=== PATIENT | female | born 1930 | race African-American/Black ===

== ENCOUNTER 2016-12-23 14:59 | Inpatient (IN) | payer MEDICAID, MEDICARE ==
--- NOTE | 2016-12-23 19:27 | Cat Scan Report ---
FINAL REPORT EXAM: CT HEAD/BRAIN WO CON HISTORY: fall head injury TECHNIQUE: CT head without contrast PRIORS: None. FINDINGS: No acute intra-axial or extra-axial hemorrhage is identified. There is no evidence of midline shift or mass effect. There is generalized prominence of ventricles and sulci. Mejía-white matter differentiation is intact. No acute parenchymal abnormalities seen. There are patchy and confluent hypodensities within the supratentorial white matter. More focal hypodensity within the posterior parietal and right occipital lobe most consistent chronic infarct noted. Bony calvarium is grossly intact. Visualized portions of the mastoids and paranasal sinuses are unremarkable. 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 Moderate generalized atrophy No acute traumatic abnormality identified.
--- NOTE | 2016-12-23 19:30 | Cat Scan Report ---
FINAL REPORT EXAM: CT CERVICAL SPINE WO CON HISTORY: fall head injury TECHNIQUE: CT cervical spine with reconstructions PRIORS: None. FINDINGS: Vertebral bodies demonstrate normal height and alignment. There is multilevel degenerative disc space narrowing most prominent C4-C5-C5-C6 with small anterior and posterior osteophytes. Hypertrophic facet joint changes are noted at multiple levels throughout the cervical spine. The facet joints demonstrate normal alignment. The spinous processes are intact. Craniocervical junction is unremarkable. C1 and C2 are intact. IMPRESSION: Degenerative disc changes and facet joint arthropathy Otherwise no acute abnormality seen
[2016-12-23 19:53] LABS: Basophils % (Auto) 0.4 % (0.0-1.8); Eosinophils % (Auto) 0.7 % (0.0-4.3); Hematocrit 38.3 % (30.3-42.9); Hemoglobin 12.2 gm/dl (10.1-14.3); Mean Corpuscular HGB Conc 32 % (30-34); Mean Corpuscular Hemoglobin 26 pg (28-32); Mean Corpuscular Volume 82 fl (79-97); Platelet Count 261 K/mm3 (140-440); Red Blood Count 4.66 M/mm3 (3.65-5.03); Red Cell Distribution Width 15.3 % (13.2-15.2); White Blood Count 7.7 K/mm3 (4.5-11.0)
[2016-12-23 20:01] LABS: Albumin 3.9 g/dL (3.9-5); Albumin/Globulin Ratio 1.1 %; BUN/Creatinine Ratio 18.88; Bilirubin,Total 0.6 mg/dL (0.1-1.2); Calcium 9.1 mg/dL (8.4-10.2); Chloride 98.8 mmol/L (98-107); Potassium 3.8 mmol/L (3.6-5.0); Total Protein 7.4 g/dL (6.3-8.2)
--- NOTE | 2016-12-23 20:02 | Emergency Department Report ---
ED Fall HPI - General Chief Complaint: Fall Stated Complaint: FALL Time Seen by Provider: 12/23/16 18:03 Source: EMS Mode of arrival: Stretcher Limitations: Language Barrier - History of Present Illness Initial Comments: 86-year-old female with a past medical history previous CVA presents to the hospital with complaints of left hip pain and left head injury status post fall. Patient fell out of bed yesterday. Also patient is "acting different". Patient complains of pain to left hip. No reports of LOC. ED Review of Systems ROS: Stated complaint: FALL Other details as noted in HPI Comment: All other systems reviewed and negative (limited, left hip pain left head injury as per hpi) ED Past Medical Hx - Past Medical History Hx CVA: Yes - Surgical History Additional Surgical History: Unknown - Social History Smoking Status: Unknown if ever smoked Substance Use Type: Other ED Physical Exam - General Limitations: Language Barrier - Other Other exam information: General:patient is alert in no acute distress Head exam: Ecchymosis to the left scalp Eyes exam: Normal appearance ENT: Moist mucous membrane, normal oropharynx Neck exam: Normal inspection, full range of motion, no meningismus nontender Respiratory exam: Clear to auscultation bilateral, no wheezes, rales, crackles Cardiovascular: Normal rate and rhythm, normal heart sounds Abdomen: Soft, nondistended, and nontender, with normal bowel sounds, no rebound, or guarding Extremity: Patient able to bend left leg at the knee. I am able to passively move hip in all directions with minimal grimace or pain. Full range of motion of right hip Back: Normal Inspection, full range of motion, no tenderness Neurologic: Alert, cranial nerves intact, no motor or sensory deficit Psychiatric: normal affect, normal mood Skin: Warm, dry, intact ED Course Vital Signs 12/23/16 17:26 Temperature 98.3 F Pulse Rate 104 H Blood Pressure 154/82 O2 Sat by Pulse 97 Oximetry - Consultations Consultation #1: 12/23/16 20:40 denzel paged 12/23/16 20:[address] Isidro upon call back. Recommends NPO for possible surgery tomorrow ED Medical Decision Making - Lab Data Result diagrams: 12/23/16 19:20 12/23/16 19:20 Lab Results 12/23/16 12/23/16 12/23/16 Range/Units 19:20 19:20 19:20 WBC 7.7 (4.5-11.0) K/mm3 RBC 4.66 (3.65-5.03) M/mm3 Hgb 12.2 (10.1-14.3) gm/dl Hct 38.3 (30.3-42.9) % MCV 82 (79-97) fl MCH 26 L (28-32) pg MCHC 32 (30-34) % RDW 15.3 H (13.2-15.2) % Plt Count 261 (140-440) K/mm3 Lymph % (Auto) 25.6 (13.4-35.0) % [place] % (Auto) 8.8 H (0.0-7.3) % Eos % (Auto) 0.7 (0.0-4.3) % Baso % (Auto) 0.4 (0.0-1.8) % Lymph # 2.0 (1.2-5.4) K/mm3 [place] # 0.7 (0.0-0.8) K/mm3 Eos # 0.1 (0.0-0.4) K/mm3 Baso # 0.0 (0.0-0.1) K/mm3 Seg Neutrophils % 64.5 (40.0-70.0) % Seg Neutrophils # 5.0 (1.8-7.7) K/mm3 PT 13.1 (12.2-14.9) Sec. INR 1.00 (0.87-1.13) APTT 32.0 (24.2-36.6) Sec. Sodium 140 (137-145) mmol/L Potassium 3.8 (3.6-5.0) mmol/L Chloride 98.8 (98-107) mmol/L Carbon Dioxide 23 (22-30) mmol/L Anion Gap 22 mmol/L BUN 17 (7-17) mg/dL Creatinine 0.9 (0.7-1.2) mg/dL Estimated GFR 59 ml/min BUN/Creatinine Ratio 18.88 % Glucose 188 H (65-100) mg/dL Calcium 9.1 (8.4-10.2) mg/dL Total Bilirubin 0.6 (0.1-1.2) mg/dL AST 18 (5-40) units/L ALT 10 (7-56) units/L Alkaline Phosphatase 107 (35-129) units/L Ammonia (25-60) umol/L Total Creatine Kinase (30-135) units/L CK-MB (CK-2) (0.0-4.0) ng/mL CK-MB (CK-2) Rel Index (0-4) Troponin T (0.00-0.029) ng/mL Total Protein 7.4 (6.3-8.2) g/dL Albumin 3.9 (3.9-5) g/dL Albumin/Globulin Ratio 1.1 % TSH (0.270-4.200) mlU/mL Free T4 (0.76-1.46) ng/dL 12/23/16 12/23/16 12/23/16 Range/Units 19:20 19:20 19:20 WBC (4.5-11.0) K/mm3 RBC (3.65-5.03) M/mm3 Hgb (10.1-14.3) gm/dl Hct (30.3-42.9) % MCV (79-97) fl MCH (28-32) pg MCHC (30-34) % RDW (13.2-15.2) % Plt Count (140-440) K/mm3 Lymph % (Auto) (13.4-35.0) % [place] % (Auto) (0.0-7.3) % Eos % (Auto) (0.0-4.3) % Baso % (Auto) (0.0-1.8) % Lymph # (1.2-5.4) K/mm3 [place] # (0.0-0.8) K/mm3 Eos # (0.0-0.4) K/mm3 Baso # (0.0-0.1) K/mm3 Seg Neutrophils % (40.0-70.0) % Seg Neutrophils # (1.8-7.7) K/mm3 PT (12.2-14.9) Sec. INR (0.87-1.13) APTT (24.2-36.6) Sec. Sodium (137-145) mmol/L Potassium (3.6-5.0) mmol/L Chloride (98-107) mmol/L Carbon Dioxide (22-30) mmol/L Anion Gap mmol/L BUN (7-17) mg/dL Creatinine (0.7-1.2) mg/dL Estimated GFR ml/min BUN/Creatinine Ratio % Glucose (65-100) mg/dL Calcium (8.4-10.2) mg/dL Total Bilirubin (0.1-1.2) mg/dL AST (5-40) units/L ALT (7-56) units/L Alkaline Phosphatase (35-129) units/L Ammonia 32.0 (25-60) umol/L Total Creatine Kinase (30-135) units/L CK-MB (CK-2) (0.0-4.0) ng/mL CK-MB (CK-2) Rel Index (0-4) Troponin T < 0.010 (0.00-0.029) ng/mL Total Protein (6.3-8.2) g/dL Albumin (3.9-5) g/dL Albumin/Globulin Ratio % TSH 2.180 (0.270-4.200) mlU/mL Free T4 1.38 (0.76-1.46) ng/dL 12/23/ Range/Units 19:20 WBC (4.5-11.0) K/mm3 RBC (3.65-5.03) M/mm3 Hgb (10.1-14.3) gm/dl Hct (30.3-42.9) % MCV (79-97) fl MCH (28-32) pg MCHC (30-34) % RDW (13.2-15.2) % Plt Count (140-440) K/mm3 Lymph % (Auto) (13.4-35.0) % [place] % (Auto) (0.0-7.3) % Eos % (Auto) (0.0-4.3) % Baso % (Auto) (0.0-1.8) % Lymph # (1.2-5.4) K/mm3 [place] # (0.0-0.8) K/mm3 Eos # (0.0-0.4) K/mm3 Baso # (0.0-0.1) K/mm3 Seg Neutrophils % (40.0-70.0) % Seg Neutrophils # (1.8-7.7) K/mm3 PT (12.2-14.9) Sec. INR (0.87-1.13) APTT (24.2-36.6) Sec. Sodium (137-145) mmol/L Potassium (3.6-5.0) mmol/L Chloride (98-107) mmol/L Carbon Dioxide (22-30) mmol/L Anion Gap mmol/L BUN (7-17) mg/dL Creatinine (0.7-1.2) mg/dL Estimated GFR ml/min BUN/Creatinine Ratio % Glucose (65-100) mg/dL Calcium (8.4-10.2) mg/dL Total Bilirubin (0.1-1.2) mg/dL AST (5-40) units/L ALT (7-56) units/L Alkaline Phosphatase (35-129) units/L Ammonia (25-60) umol/L Total Creatine Kinase 98 (30-135) units/L CK-MB (CK-2) 1.8 (0.0-4.0) ng/mL CK-MB (CK-2) Rel Index 1.8 (0-4) Troponin T (0.00-0.029) ng/mL Total Protein (6.3-8.2) g/dL Albumin (3.9-5) g/dL Albumin/Globulin Ratio % TSH (0.270-4.200) mlU/mL Free T4 (0.76-1.46) ng/dL - EKG Data -: EKG Interpreted by Me (normal sinus rhythm rate 93. No ST elevation or T- wave inversions) - Radiology Data Radiology results: report reviewed, image reviewed interpreted by me: Chest x-ray: Chronic interstitial changes no acute findings Left hip x-ray: Femoral neck fracture. CT head: Chronic small vessel white matter ischemic changes and remote white posterior occipital infarct. Moderate generalized atrophy. CT cervical spine: Degenerative disc changes and facet joint arthropathy no acute abnormality - Medical Decision Making Patient has a left hip fracture. Orthopedic consultated. Patient does not have any other lab abnormality. Will be admitted to the hospital for further treatment. ua pending - Differential Diagnosis fall, fracture, contusion, intracranial hemorrhage, encephalopathy Critical Care Time: No Critical care attestation.: If time is entered above; I have spent that time in minutes in the direct care of this critically ill patient, excluding procedure time. ED Disposition Clinical Impression: Closed left hip fracture, Fall, Closed head injury Disposition: OP ADMITTED IP TO THIS HOSP Is pt being admited?: Yes Condition: Stable Time of Disposition: 20:38 (dr tan/hosp)
[2016-12-23 20:03] LABS: Creatine Kinase MB 1.8 ng/mL (0.0-4.0)
--- NOTE | 2016-12-23 20:11 | XRay Report ---
FINAL REPORT EXAM: XR HIP 2-3V LT HISTORY: fall, left hip pain TECHNIQUE: Left hip two views PRIORS: None. FINDINGS: There is acute left traumatic basicervical hip fracture with minimal displacement. The bony pelvis appears intact. Right hip is unremarkable. Pubic symphysis and SI joints are within normal limits. IMPRESSION: Acute left basicervical hip fracture
--- NOTE | 2016-12-23 20:41 | Admit Criteria Form ---
Admission Criteria Documentation: MUSCULOSKELETAL DISEASE GRG Clinical Indications for Admission to Inpatient Care (Place 'X' for any and all applicable criteria): Hospital admission is needed for appropriate care of the patient because of ANY ONE of the following: [X ]I. Fracture, dislocation, or other musculoskeletal injury requiring inpatient care(medical) as indicated by ANY ONE of the following(4)(5)(6)(7) [ ]a) Vertebral fracture requiring observation for instability or neurologic compromise (8) [ ]b) Compartment syndrome (proven or cannot be ruled out during observation level of care) (9) [ ]c) Limb-threatening injury [ ]d) Major injury requiring inpatient stabilization such as traction initiation or external fixation before internal fixation or closure of complex or open fracture [X ]e) Major injury requiring inpatient treatment after emergency or observation level care (as appropriate) [ ]f) Severe pain requiring acute inpatient management [ ]II. Newly diagnosed or suspected bone, joint, or orthopedic device infection (e.g., osteomyelitis, septic arthritis) needing ANY ONE of the following(1)(2)(3) [ ]a) IV antibiotics that cannot be initiated in other than inpatient setting (e.g., patient too unstable or home infusion not available) [ ]b) Device removal or replacement [ ]c) Bone or soft tissue debridement [ ]d) Joint drainage (drain placement or repetitive aspirations) [ ]III. Severe rheumatologic disease (e.g., systemic lupus erythematosus, rheumatoid arthritis) with complications or comorbidities (Also use Optimal Recovery Care Criteria or General Recovery Criteria as appropriate on the basis of predominant condition), including ANY ONE of the following(10 )(11)(12)(13) [ ]a) Severe infection (e.g., INFORMATION TECHNOLOGY ASSISTANT infection, sepsis) (14) [ ]b) Respiratory complications, including ANY ONE of the following: [ ]i) Pleural effusion with respiratory compromise [ ]ii) Pulmonary hypertension with congestive failure [ ]iii) Respiratory failure [ ]iv) Pulmonary hemorrhage (15) [ ]c) Hematologic disease, including ANY ONE of the following: [ ]i) Coagulopathy with bleeding [ ]ii) Thrombosis with hypercoagulable state [ ]iii) Thrombotic thrombocytopenic purpura [ ]d) Cerebritis with seizures, psychosis, or other severe abnormalities [ ]e) Vertebral destruction with monitoring needed for cervical myelopathy& possible respiratory compromise [ ]f) Exacerbation that requires inpatient treatment (e.g., intravenous immunosuppression) (16) [ ]g) Acute renal failure [ ]IV. Severe vasculitis with complications or comorbidities (Also use Optimal Recovery Care Criteria or General Recovery Criteria as appropriate on the basis of predominant condition), including ANY ONE of the following(11)(12)(17)(18)(19)(20) [ ]a) INFORMATION TECHNOLOGY ASSISTANT vasculitis with seizures, psychosis, or other severe abnormalities (22) [ ]b) Renal failure (16) [ ]c) Pulmonary hemorrhage (15) [ ]d) Cerebral infarction [ ]e) Gastrointestinal ischemia [ ]f) Gangrene or threatened amputation [ ]g) Exacerbation that requires inpatient treatment (e.g., intravenous immunosuppression) (19)(21) [ ]V. Severe myopathy as indicated by ANY ONE of the following (28)(29) [ ]a) New onset of airway compromise or inability to swallow [ ]b) Respiratory deterioration with observation needed for impending respiratory failure [ ]c) Exacerbation that requires inpatient treatment (e.g., intravenous immunosuppression) [ ]. Severe gout (crystal arthropathy) as indicated by ANY ONE of the following (23)(24) [ ]a) Severe pain requiring acute inpatient management [ ]b) Exacerbation that requires inpatient treatment (e.g., intravenous treatment) [ ]VII.Rhabdomyolysis and ANY ONE of the following (25)(26)(27) [ ]a) Acute renal failure [ ]b) Need for intravenous hydration after emergency or observation level care (as appropriate) [ ]c) Inability to maintain oral hydration [ ]d) Change in mental status [ ]e) Electrolyte abnormality that remains after emergency or observation level care (as appropriate) [ ]VIII Post amputation complication, as indicated by ANY ONE of the following [ ]a) Infection [ ]b) Dehiscence [ ]c) Myodesis failure [ ]IX. Severe pain requiring acute inpatient management as indicated by ALL of the following (30)(31)(32) [ ]a) Continuous or frequent (e.g., every 2 to 4 hrs) parenteral analgesics required [A] [ ]b) Rapid improvement expected from treatment or acute intervention ( e.g., surgery, anesthesia procedure[B] [ ]X. Musculoskeletal Disease and ALL of the following: [ ]a) Symptom or finding for which emergency and observation care have failed or are not considered appropriate (Use General Criteria: Observation Care as appropriate) [ ]b) Presence of ANY ONE of the following [ ]i) A General Admission Criteria [ ]ii) A Pediatric General Admission Criteria The original [facility] content created by [facility] has been revised. The portions of the content which have been revised are identified through the use of italic text or in bold, and [facility] has neither reviewed nor approved the modified material. All other unmodified content is copyright [facility]. Please see references footnoted in the original [facility] edition 2016 Admission Criteria Met: Yes
[2016-12-24] MEDS ORDERED: DILAUDID IV PRN (05:59)
[2016-12-24] MEDS ORDERED: ZOFRAN IV PRN (06:00)
[2016-12-24] MEDS ORDERED: ceFAZolin 2 GM in NACL 0.9% 100 ML IV ONE (07:20)
--- NOTE | 2016-12-24 07:23 | Consultation ---
History of Present Illness - HPI Consult date: 12/24/16 Consult reason: fracture (left hip) Medications and Allergies Allergies Allergy/AdvReac Type Severity Reaction Status Date / Time No Known Allergies Allergy Verified 12/24/16 06:01 Home Medications Medication Instructions Recorded Confirmed Last Taken Type Linagliptin [Tradjenta] 5 mg PO DAILY 12/24/16 12/24/16 Unknown History Mupirocin 0.5 gm TL 4XD 12/24/16 12/24/16 Unknown History Nifedipine ER 30 mg PO DAILY 12/24/16 12/24/16 Unknown History Potassium Chloride 20 meq PO DAILY 12/24/16 12/24/16 Unknown History Ranitidine HCl 150 mg PO BID 12/24/16 12/24/16 Unknown History Tramadol HCl 50 mg PO BID PRN 12/24/16 12/24/16 Unknown History Triamcinolone 0.5% 12/24/16 Unknown History Valsartan 80 mg PO DAILY 12/24/16 12/24/16 Unknown History glipiZIDE XL 5 mg PO DAILY 12/24/16 12/24/16 Unknown History predniSONE 5 mg PO QWEEK 12/24/16 12/24/16 Unknown History Active Meds: Active Medications Famotidine (Pepcid) 20 mg PO DAILY [facility] Hydromorphone HCl (Dilaudid) 0.5 mg IV Q3H PRN PRN Reason: Pain , Severe (7-10) Cefazolin Sodium 2 gm/ Sodium (Chloride) 100 mls @ 200 mls/hr IV ONCE ONE Stop: 12/24/16 07:49 Insulin Aspart (Novolog) 0 units SUB-Q Q6HR SEBASTIAN PRN Reason: Protocol Nifedipine (Procardia Xl) 30 mg PO QDAY [facility] Ondansetron HCl (Zofran) 4 mg IV Q3H PRN PRN Reason: Nausea And Vomiting Potassium Chloride (K-Dur) 20 meq PO QDAY [facility] Valsartan (Diovan) 80 mg PO DAILY [facility] Assessment and Plan alert orintated elderly female in mod pain fell at home, admited by ER Chest clear, soft abdomen neuro intact Rxd Fx base of femoral neck Osteoporosis Plan ORIF hip consent obtained from .
--- NOTE | 2016-12-24 08:17 | XRay Report ---
AP chest x-ray. Findings: The heart and lungs reveal no acute or significant abnormalities.
[2016-12-24] MEDS ORDERED: NON-FORMULARY (Ranitidine Hcl 150 MG) PO SCH (10:00)
[2016-12-24] MEDS ORDERED: POTASSIUM CHLORIDE 20 MEQ PO SCH (10:00)
[2016-12-24] MEDS ORDERED: VALSARTAN 80 MG PO SCH (10:00)
[2016-12-24] MEDS ORDERED: NIFEDIPINE 30 MG PO SCH (10:00)
--- NOTE | 2016-12-24 11:02 | Progress Note ---
Assessment and Plan Assessment and plan: 1. Hip fracture. Orthopedics to perform surgery 2. History CVA. Continue supportive care. 3. s/p fall. No LOC. PT/OT postoperatively. History Interval history: No new issues overnight. Hospitalist Physical - Constitutional Vitals: Temp Pulse Resp BP Pulse Ox 97.3 F L 106 H 20 146/90 96 12/24/16 07:00 12/24/16 07:00 12/24/16 07:00 12/24/16 07:00 12/24/16 07:00 General appearance: Present: no acute distress, well-nourished - EENT Eyes: Present: PERRL, EOM intact ENT: hearing intact, clear oral mucosa, dentition normal - Neck Neck: Present: supple, normal ROM - Respiratory Respiratory effort: normal Respiratory: bilateral: CTA - Cardiovascular Rhythm: regular Heart Sounds: Present: S1 & S2. Absent: gallop, rub - Extremities Extremities: no ischemia, No edema, Full ROM - Abdominal General gastrointestinal: soft, non-tender, non-distended, normal bowel sounds - Integumentary Integumentary: Present: clear, warm, dry - Neurologic Neurologic: CNII-XII intact, moves all extremities Results - Labs CBC & Chem 7: 12/23/16 19:20 12/23/16 19:20 Labs: Laboratory Last Values WBC 7.7 K/mm3 (4.5-11.0) 12/23/16 19:20 RBC 4.66 M/mm3 (3.65-5.03) 12/23/16 19:20 Hgb 12.2 gm/dl (10.1-14.3) 12/23/16 19:20 Hct 38.3 % (30.3-42.9) 12/23/16 19:20 MCV 82 fl (79-97) 12/23/16 19:20 MCH 26 pg (28-32) L 12/23/16 19:20 MCHC 32 % (30-34) 12/23/16 19:20 RDW 15.3 % (13.2-15.2) H 12/23/16 19:20 Plt Count 261 K/mm3 (140-440) 12/23/16 19:20 Lymph % (Auto) 25.6 % (13.4-35.0) 12/23/16 19:20 [place] % (Auto) 8.8 % (0.0-7.3) H 12/23/16 19:20 Eos % (Auto) 0.7 % (0.0-4.3) 12/23/16 19:20 Baso % (Auto) 0.4 % (0.0-1.8) 12/23/16 19:20 Lymph # 2.0 K/mm3 (1.2-5.4) 12/23/16 19:20 [place] # 0.7 K/mm3 (0.0-0.8) 12/23/16 19:20 Eos # 0.1 K/mm3 (0.0-0.4) 12/23/16 19:20 Baso # 0.0 K/mm3 (0.0-0.1) 12/23/16 19:20 Seg Neutrophils % 64.5 % (40.0-70.0) 12/23/16 19:20 Seg Neutrophils # 5.0 K/mm3 (1.8-7.7) 12/23/16 19:20 PT 13.1 Sec. (12.2-14.9) 12/23/16 19:20 INR 1.00 (0.87-1.13) 12/23/16 19:20 APTT 32.0 Sec. (24.2-36.6) 12/23/16 19:20 Sodium 140 mmol/L (137-145) 12/23/16 19:20 Potassium 3.8 mmol/L (3.6-5.0) 12/23/16 19:20 Chloride 98.8 mmol/L (98-107) 12/23/16 19:20 Carbon Dioxide 23 mmol/L (22-30) 12/23/16 19:20 Anion Gap 22 mmol/L 12/23/16 19:20 BUN 17 mg/dL (7-17) 12/23/16 19:20 Creatinine 0.9 mg/dL (0.7-1.2) 12/23/16 19:20 Estimated GFR 59 ml/min 12/23/16 19:20 BUN/Creatinine Ratio 18.88 % 12/23/16 19:20 Glucose 188 mg/dL (65-100) H 12/23/16 19:20 Calcium 9.1 mg/dL (8.4-10.2) 12/23/16 19:20 Total Bilirubin 0.6 mg/dL (0.1-1.2) 12/23/16 19:20 AST 18 units/L (5-40) 12/23/16 19:20 ALT 10 units/L (7-56) 12/23/16 19:20 Alkaline Phosphatase 107 units/L (35-129) 12/23/16 19: Ammonia 32.0 umol/L (25-60) 12/23/16 19:20 Total Creatine Kinase 98 units/L (30-135) 12/23/16 19:20 CK-MB (CK-2) 1.8 ng/mL (0.0-4.0) 12/23/16 19:20 CK-MB (CK-2) Rel Index 1.8 (0-4) 12/23/16 19:20 Troponin T < 0.010 ng/mL (0.00-0.029) 12/23/16 19:20 Total Protein 7.4 g/dL (6.3-8.2) 12/23/16 19:20 Albumin 3.9 g/dL (3.9-5) 12/23/16 19:20 Albumin/Globulin Ratio 1.1 % 12/23/16 19:20 TSH 2.180 mlU/mL (0.270-4.200) 12/23/16 19:20 Free T4 1.38 ng/dL (0.76-1.46) 12/23/16 19:20
[2016-12-24] MEDS ORDERED: NACL 0.9% 1000 ML 1,000 ML ONE (11:34)
--- NOTE | 2016-12-24 11:53 | Anesthesia Consultation ---
Anesthesia Consult and Med Hx Date of service: 12/24/16 (Scheduled for left hip surgery with Dr. Garcia) - Airway Anesthetic Teeth Evaluation: Edentulous ROM Head & Neck: Adequate Mental/Hyoid Distance: Adequate Mallampati Class: Class III (Difficult to assess) Intubation Access Assessment: Possibly Difficult - Pulmonary Exam CTA: Yes - Cardiac Exam Cardiac Exam: RRR - Pre-Operative Health Status ASA Pre-Surgery Classification: ASA3 Proposed Anesthetic Plan: General - Pre-Anesthesia Comment Pre-Anesthesia Comments: PT does not speak Spanish- daughter present to translate. Past surgical hx of tubal ligation and hand fx- no previous anesthesia complications. NPO since midnight. - Pulmonary Hx Smoking: No Hx Asthma: No - Cardiovascular System Hx Hypertension: Yes (Pt denies chest pain) Hx Coronary Artery Disease: No Hx Heart Attack/AMI: No - Central Nervous System Hx Seizures: No CVA: Yes (Left sided residual paralysis) Hx Psychiatric Problems: Yes (Dementia) - Gastrointestinal Hx Gastroesophageal Reflux Disease: No - Endocrine Hx Renal Disease: No Hx Non-Insulin Dependent Diabetes: Yes (Accucheck 230- Pt given 5 units IV regular insulin) Hx Thyroid Disease: No - Hematic Hx Anemia: No (H/H ) - Other Systems Hx Cancer: No Hx Obesity: No
[2016-12-24] MEDS ORDERED: PEPCID IV NR (12:00)
[2016-12-24] MEDS ORDERED: SUBLIMAZE ONE (12:16)
[2016-12-24] MEDS ORDERED: DIPRIVAN 10 MG/ML IV ONE (12:16)
[2016-12-24] MEDS ORDERED: XYLOCAINE MPF 2% ONE ×2 (12:19→13:38)
--- NOTE | 2016-12-24 12:34 | Anesthesia Day of Surgery ---
Anesthesia Day of Surgery - Day of Surgery Patient Examined: Yes Patient H&P Reviewed: Yes Patient is NPO: Yes
[2016-12-24] MEDS ORDERED: DULCOLAX PR PRN (12:58)
[2016-12-24] MEDS ORDERED: TYLENOL PO PRN (12:58)
[2016-12-24] MEDS ORDERED: PHENERGAN PR PRN (12:58)
[2016-12-24] MEDS ORDERED: MILK OF MAGNESIA PO PRN (12:58)
[2016-12-24] MEDS ORDERED: SODIUM CHLORIDE FLUSH SYRINGE 10 ML IV PRN (12:58)
--- NOTE | 2016-12-24 12:58 | Procedure Note ---
Date of procedure: 12/24/16 Pre-op diagnosis: frcture left hip; femoral neck Post-op diagnosis: same Procedure: Bipolar cemented arthroplasty left hip Anesthesia: GETA Surgeon: SHIMA OWENS [employer] Mechanic: JANELL LOZANO Estimated blood loss: minimal Pathology: list (femoral head) Specimen disposition: discarded Condition: stable Disposition: floor
[2016-12-24] MEDS ORDERED: ANCEF/STERILE WATER 2 GM/20 ML 2 GM/20 ML SYRINGE IV SCH (13:00)
[2016-12-24] MEDS ORDERED: ZOFRAN ONE (13:14)
[2016-12-24] MEDS ORDERED: NEOSPORIN GU IR ONE (13:26)
[2016-12-24] MEDS ORDERED: NACL 0.9% IR ONE (13:27)
[2016-12-24] MEDS ORDERED: TRANEXAMIC ACID IV ONE (13:27)
[2016-12-24] MEDS ORDERED: BREVIBLOC IV ONE (13:29)
[2016-12-24] MEDS ORDERED: NACL P/F VIAL (10 ML) INFILTRATI ONE (13:29)
[2016-12-24] MEDS ORDERED: ROBINUL ONE (13:29)
[2016-12-24] MEDS ORDERED: NEO SYNEPHRINE/NS Syringe(OR USE) IV ONE (13:38)
[2016-12-24] MEDS: DILAUDID IV PRN ×4 (14:35→15:03)
--- NOTE | 2016-12-24 16:52 | Event Note ---
Date: 12/23/16 See H/p in reports L Hip trochanteric fx HTN T2DM
--- NOTE | 2016-12-24 19:13 | History and Physical Report ---
CHIEF COMPLAINT: Left hip pain and headaches after a fall. HISTORY OF PRESENT ILLNESS: An 86-year-old with history of hypertension and diabetes and cerebrovascular accident, had a fall today, tripped and fell down. Since then fell out of bed. The patient has pain of 10/10 and unable to move her left hip. No loss of consciousness. Pain is sharp and intermittent. More on any movement in the hip joint. No fever, no chills. Slightly altered sensorium. PAST MEDICAL HISTORY: Hypertension, diabetes, cerebrovascular accident. PAST SURGICAL HISTORY: None. SOCIAL HISTORY: Does not smoke. No alcohol, no recreational drugs. Lives with her family. FAMILY HISTORY: No hypertension, no diabetes. CURRENT MEDICATIONS: The patient on, 1. Prednisone 5 mg q. weekly, reason unknown. 2. Glipizide 5 mg p.o. daily. 3. Tradjenta 5 mg p.o. daily. 4. Mupirocin 0.5 mg 4 times a day. 5. Tramadol 250 mg twice a day. 6. Triamcinolone cream 0.5% twice a day to affected areas of skin rash. 7. Nifedipine 30 mg p.o. daily. 8. Potassium 20 mEq p.o. daily. 9. Ranitidine 150 mg p.o. b.i.d. 10. Valsartan 80 mg p.o. daily. REVIEW OF SYSTEMS: CONSTITUTIONAL: No weight loss, no weight gain. Slightly altered sensorium. HEENT: No sore throat. No postnasal drip. CARDIOVASCULAR: No chest pain, no palpitations. RESPIRATORY SYSTEM: No shortness of breath. No cough. GASTROINTESTINAL: No nausea, no vomiting, no diarrhea. GENITOURINARY: No dysuria, no flank pain. MUSCULOSKELETAL: No joint pains. Has severe left hip pain. Pain is about 10 on a scale of 1 to 10. LYMPHATIC AND HEMATOLOGIC SYSTEMS: No bruising, no lymphedema. CENTRAL NERVOUS SYSTEM: Slightly altered sensorium, but otherwise alert and oriented. SKIN: No rashes. A 14-point review of systems done essentially negative other than the left hip pain and slightly altered sensorium, negative. PHYSICAL EXAMINATION: GENERAL: Elderly female lying in bed, slight distress because of the left hip pain. VITAL SIGNS: Blood pressure is 138/74, temperature is 97, pulse is 102, respiratory rate is 12. HEENT: Unremarkable. Pupils equal and reactive. NECK: Supple, no lymphadenopathy, no thyromegaly. LUNGS: Clear to auscultation and percussion. Good air entry. CARDIOVASCULAR: S1, S2 heard. No gallop, no murmur, no rub. Apical impulse in left fifth intercostal space and midclavicular line. ABDOMEN: Soft and benign. No hepatosplenomegaly. No guarding, no rigidity. Hernial orifices are normal. EXTREMITIES: Good pedal pulses. No pedal edema. CENTRAL NERVOUS SYSTEM: Alert and oriented x 4. Nonfocal exam. EXTREMITIES: Decreased range of motion of the left hip. Slightly abducted and external rotation present. SKIN: Normal. LABORATORY DATA: White count is 7700, H and H is 12.2 and 38.3, platelet count is 261,000. Protime is 13.1, INR is 1.0. Glucose is 231. Sodium is 140, potassium is 3.8, BUN and creatinine is 17 and 0.9. CK-MB is 1.8. LFTs are normal. Chest x-ray is normal. Hip x-ray shows left basicervical hip fracture. Minimal displacement. Pubic symphysis and SI joints are within normal limits. Head CT and spinal CT were normal. ASSESSMENT AND PLAN: 1. Left hip fracture basicervical. The patient for open reduction internal fixation in the morning. Dr. Garcia consulted. Pain management in the meantime. Dilaudid 0.5 to 1 mg q.3 and Zofran 4 mg q.3 p.r.n. 2. Type 2 diabetes mellitus. The patient's glipizide is kept on hold. Insulin coverage for the time being till the surgery is over and the patient starts eating. 3. Hypertension. Continue valsartan and nifedipine. Valsartan 80 mg daily and nifedipine 30 mg daily. 4. Gastroesophageal reflux disease. Continue ranitidine 150 twice a day. 5. Dermatitis. Continue steroid creams on p.r.n. basis. 6. DVT prophylaxis, SCDs for now and Lovenox after the surgery. JOB# [id number] VSM/NTS
[2016-12-24] MEDS: NOVOLOG SUB-Q SCH ×3 (19:56→23:22)
[2016-12-24] MEDS: ANCEF/NS 1 GM/50 ML 1 GM/50 ML BAG IV SCH (21:26)
[2016-12-24] MEDS: ASPIRIN PO SCH (21:26)
[2016-12-24] MEDS: MORPHINE IV PRN (21:27)
--- NOTE | 2016-12-25 00:40 | Consultation ---
REASON FOR CONSULTATION: Fracture of the left hip. BRIEF HISTORY: The patient is an 86-year-old female who was admitted to the hospital to the Emergency Clinic after sustaining the above-mentioned injury that occurred with the patient slipped and fell at home. The patient was admitted secondary to the fracture type. The patient was seen today at bedside. PHYSICAL EXAMINATION: GENERAL: Today demonstrates an alert and oriented female who is in no acute distress. HEAD: The examination demonstrates the patient to be normocephalic. EYES, EARS, NOSE, AND THROAT: Clear. CHEST: Clear. ABDOMEN: soft with no masses. NEUROLOGICAL: Intact. The patient has severe discomfort and pain of the left lower extremity. The leg is in slight external rotation without any shortening The pulses are good. Neurological exam is normal. DIAGNOSTIC STUDIES: X-rays of the patient demonstrates a fracture on the bases of the femoral neck on the left hip with severe osteoporosis. DIAGNOSES: Fracture of the left hip femoral neck, severe osteoporosis. RECOMMENDATIONS: Today discussion with the patient and her was carried out. Consent was obtained. The plan is to carry out bipolar arthroplasty of the hip joint. This will be carried out with cement. JOB# [id number] SERAFIN/GUERLINE ALICEA
[2016-12-25] MEDS: ANCEF/NS 1 GM/50 ML 1 GM/50 ML BAG IV SCH (04:17)
[2016-12-25] MEDS: OxyCONTIN PO SCH ×3 (06:38→23:25)
[2016-12-25] MEDS: NOVOLOG SUB-Q SCH ×3 (06:43→17:44)
--- NOTE | 2016-12-25 08:19 | Query- Nutrition ---
Marry Brady Date:_12/25/2016 Pet Care Attendant/CDS:__Maxim Navarrete Phone#: Exercise your independent professional judgment when responding to query. Questions asked do not imply a particular answer is desired or expected. We greatly appreciate your clarification on this issue. Clinical Documentation States: The patient is a 79-shppo-lsi Female who was admitted due to Femur Fracture. Weight 38.9 kg BMI 16.7 kg/m2 Please select the most appropriate option 3 [] Mild Malnutrition [x] Mild - Moderate Malnutrition [] Moderate - Severe Malnutrition [] Severe Malnutrition Serum Albumin 2.8 to 3.4 g/dl or Pre-albumin 5 to 17 mg/dl1,2 Inadequate nutritional intake1,2,3,4 NPO > 5 days Weight loss: 5% in 1 month or 7.5% in 3 months or 10% in 6 months1, 3,4 BMI 16 to 18.4 or Weight <90% of ideal body weight1,2,3,4 Serum Albumin < 2.8 g/ dl1,2 Lymphocytes < 1500/ L2 Inadequate nutritional intake3, high stress e.g. major trauma, sepsis,pancreatitis, clinton etc. Decubitus ulcers1,2, , skin breakdown2, easy hair pluckability2 Weight <80% standard for height2 Triceps skin fold <3 mm2 Mid-arm muscle circumference <15 cm2 Creatinine-height index <60% standard2 [ ] Cachexia [ ] Emaciated w/Malnutrition [ ] Other: [ ] Unable to determine [ ] Comment/Explanation: Present on Admission: [ x] Yes (Y) [ ] Clinically undeterminable (W) [ ] No (N) Please also document response in your Progress Notes and/or Discharge Summary and indicate if the condition was present on admission. MTDD
[2016-12-25] MEDS: ASPIRIN PO SCH ×2 (09:55→23:24)
[2016-12-25] MEDS: PROCARDIA XL PO SCH (09:56)
[2016-12-25] MEDS: K-DUR PO SCH (09:56)
[2016-12-25] MEDS: DIOVAN PO SCH (09:57)
--- NOTE | 2016-12-25 10:21 | Post Anesthesia Evaluation ---
- Post Anesthesia Evaluation Patient Participated: Yes Airway Patent: Yes Stable Respiratory Function: Yes Nausea/Vomiting: No Temp > 96.8F: Yes Pain Manageable: Yes Adequeate Hydration: Yes Anesthesia Complications: No Block Receding Appropriately: Not Applicable Patient on Ventilator: No
--- NOTE | 2016-12-25 13:41 | Progress Note ---
Assessment and Plan Assessment and plan: 1. Hip fracture. Orthopedics to perform surgery 2. History CVA. Continue supportive care. 3. s/p fall. No LOC. PT/OT postoperatively. 4. Disposition. Patient will need likely acute rehabilitation placement. History Interval history: No new issues overnight. Hospitalist Physical - Constitutional Vitals: Temp Pulse Resp BP Pulse Ox 100.4 F H 92 H 18 146/81 96 12/25/16 08:00 12/25/16 09:57 12/25/16 08:00 12/25/16 09:57 12/25/16 08:00 General appearance: Present: no acute distress, well-nourished - EENT Eyes: Present: PERRL, EOM intact ENT: hearing intact, clear oral mucosa, dentition normal - Neck Neck: Present: supple, normal ROM - Respiratory Respiratory effort: normal Respiratory: bilateral: CTA - Cardiovascular Rhythm: regular Heart Sounds: Present: S1 & S2. Absent: gallop, rub - Extremities Extremities: no ischemia, No edema, Full ROM - Abdominal General gastrointestinal: soft, non-tender, non-distended, normal bowel sounds - Integumentary Integumentary: Present: clear, warm, dry - Neurologic Neurologic: CNII-XII intact, moves all extremities Results - Labs CBC & Chem 7: 12/23/16 19:20 12/23/16 19:20 Labs: Laboratory Last Values WBC 7.7 K/mm3 (4.5-11.0) 12/23/16 19:20 RBC 4.66 M/mm3 (3.65-5.03) 12/23/16 19:20 Hgb 12.2 gm/dl (10.1-14.3) 12/23/16 19:20 Hct 38.3 % (30.3-42.9) 12/23/16 19:20 MCV 82 fl (79-97) 12/23/16 19:20 MCH 26 pg (28-32) L 12/23/16 19:20 MCHC 32 % (30-34) 12/23/16 19:20 RDW 15.3 % (13.2-15.2) H 12/23/16 19:20 Plt Count 261 K/mm3 (140-440) 12/23/16 19:20 Lymph % (Auto) 25.6 % (13.4-35.0) 12/23/16 19:20 [place] % (Auto) 8.8 % (0.0-7.3) H 12/23/16 19:20 Eos % (Auto) 0.7 % (0.0-4.3) 12/23/16 19:20 Baso % (Auto) 0.4 % (0.0-1.8) 12/23/16 19:20 Lymph # 2.0 K/mm3 (1.2-5.4) 12/23/16 19:20 [place] # 0.7 K/mm3 (0.0-0.8) 12/23/16 19:20 Eos # 0.1 K/mm3 (0.0-0.4) 12/23/16 19:20 Baso # 0.0 K/mm3 (0.0-0.1) 12/23/16 19:20 Seg Neutrophils % 64.5 % (40.0-70.0) 12/23/16 19:20 Seg Neutrophils # 5.0 K/mm3 (1.8-7.7) 12/23/16 19:20 PT 13.1 Sec. (12.2-14.9) 12/23/16 19:20 INR 1.00 (0.87-1.13) 12/23/16 19:20 APTT 32.0 Sec. (24.2-36.6) 12/23/16 19:20 Sodium 140 mmol/L (137-145) 12/23/16 19:20 Potassium 3.8 mmol/L (3.6-5.0) 12/23/16 19:20 Chloride 98.8 mmol/L (98-107) 12/23/16 19:20 Carbon Dioxide 23 mmol/L (22-30) 12/23/16 19:20 Anion Gap 22 mmol/L 12/23/16 19:20 BUN 17 mg/dL (7-17) 12/23/16 19:20 Creatinine 0.9 mg/dL (0.7-1.2) 12/23/16 19:20 Estimated GFR 59 ml/min 12/23/16 19:20 BUN/Creatinine Ratio 18.88 % 12/23/16 19:20 Glucose 188 mg/dL (65-100) H 12/23/16 19:20 POC Glucose 231 (70-105) H 12/25/16 11:38 Calcium 9.1 mg/dL (8.4-10.2) 12/23/16 19:20 Total Bilirubin 0.6 mg/dL (0.1-1.2) 12/23/16 19:20 AST 18 units/L (5-40) 12/23/16 19:20 ALT 10 units/L (7-56) 12/23/16 19:20 Alkaline Phosphatase 107 units/L (35-129) 12/23/16 19:20 Ammonia 32.0 umol/L (25-60) 12/23/16 19:20 Total Creatine Kinase 98 units/L (30-135) 12/23/16 19:20 CK-MB (CK-2) 1.8 ng/mL (0.0-4.0) 12/23/16 19:20 CK-MB (CK-2) Rel Index 1.8 (0-4) 12/23/16 19:20 Troponin T < 0.010 ng/mL (0.00-0.029) 12/23/16 19:20 Total Protein 7.4 g/dL (6.3-8.2) 12/23/16 19:20 Albumin 3.9 g/dL (3.9-5) 12/23/16 19:20 Albumin/Globulin Ratio 1.1 % 12/23/16 19:20 TSH 2.180 mlU/mL (0.270-4.200) 12/23/16 19:20 Free T4 1.38 ng/dL (0.76-1.46) 12/23/16 19:20
[2016-12-25 13:58] LABS: Hematocrit 35.7 % (30.3-42.9); Hemoglobin 11.1 gm/dl (10.1-14.3)
--- NOTE | 2016-12-25 15:14 | Progress Note ---
Assessment and Plan - Patient Problems (1) Closed left hip fracture Current Visit: Yes Status: Acute Qualifiers: Encounter type: subsequent encounter Fracture healing: F Plan to address problem: Continue with pain management, rehabilitation program, partial weightbearing and DVT prophylaxis, mechanical. Patient may be discharged to [facility]/SNF when medically cleared, followup in the office in 2 weeks upon discharge. Subjective Date of service: 12/25/16 Principal diagnosis: Fx hip/ s/p Bipolar nelda arthroplasty Interval history: Complaints of pain, no acute changes. Out of bed with rehabilitation. Objective Vital signs: Vital Signs - 12hr 12/25/16 12/25/16 12/25/16 08:00 09:57 10:00 Temperature 100.4 F H Pulse Rate 92 H Pulse Rate [ 92 H 92 H Right Brachial] Respiratory 18 Rate Blood Pressure 146/81 Blood Pressure 146/81 [Right Arm] O2 Sat by Pulse 96 96 Oximetry - Labs CBC & BMP: 12/25/16 13:29 12/23/16 19:20 Labs: Abnormal lab results 12/24/16 12/24/16 12/25/16 Range/Units 15:58 22:09 05:57 POC Glucose 169 H 317 H 176 H (70-105) 12/25/16 Range/Units 11:38 POC Glucose 231 H (70-105)
[2016-12-25] MEDS: D5/0.45NS 1,000 ML IV SCH (19:03)
[2016-12-25] MEDS: PEPCID PO SCH (19:28)
[2016-12-26] MEDS: NOVOLOG SUB-Q SCH ×5 (01:02→17:45)
--- NOTE | 2016-12-26 07:52 | Progress Note ---
Assessment and Plan alert orientated elderly female in mod pain Chest clear, soft abdomen neuro intact wound ok May be DC to rehab as per medicine Subjective Date of service: 12/26/16 Principal diagnosis: Fx hip/ s/p Bipolar nelda arthroplasty Objective Vital signs: Vital Signs - 12hr 12/25/16 12/26/16 23:00 04:10 Temperature 99.0 F 98.6 F Pulse Rate [ 120 H Left Radial] Pulse Rate [ 113 H Right Brachial] Respiratory 18 18 Rate Blood Pressure 131/69 114/67 [Right Arm] O2 Sat by Pulse 94 96 Oximetry - Labs CBC & BMP: 12/26/16 08:18 12/26/16 08:18 Labs: Abnormal lab results 12/25/16 12/25/16 12/25/16 Range/Units 11:38 17:12 23:45 POC Glucose 231 H 372 H 317 H (70-105) 12/26/16 Range/Units 06:03 POC Glucose 258 H (70-105)
[2016-12-26 08:38] LABS: Basophils % (Auto) 0.1 % (0.0-1.8); Hematocrit 32.8 % (30.3-42.9); Hemoglobin 10.5 gm/dl (10.1-14.3); Mean Corpuscular HGB Conc 32 % (30-34); Mean Corpuscular Hemoglobin 27 pg (28-32); Mean Corpuscular Volume 83 fl (79-97); Platelet Count 199 K/mm3 (140-440); Red Blood Count 3.95 M/mm3 (3.65-5.03); Red Cell Distribution Width 15.1 % (13.2-15.2); White Blood Count 10.5 K/mm3 (4.5-11.0)
[2016-12-26] MEDS: D5/0.45NS 1,000 ML IV SCH (08:48)
[2016-12-26 08:53] LABS: BUN/Creatinine Ratio 12.72; Calcium 8.6 mg/dL (8.4-10.2); Chloride 99.8 mmol/L (98-107); Potassium 3.7 mmol/L (3.6-5.0)
[2016-12-26] MEDS: DIOVAN PO SCH (09:30)
[2016-12-26] MEDS: ASPIRIN PO SCH ×2 (09:30→22:15)
[2016-12-26] MEDS: PEPCID PO SCH ×2 (09:30→17:45)
[2016-12-26] MEDS: PROCARDIA XL PO SCH ×2 (09:30→17:45)
[2016-12-26] MEDS: OxyCONTIN PO SCH (09:30)
[2016-12-26] MEDS: K-DUR PO SCH ×2 (09:30→17:44)
[2016-12-26] MEDS ORDERED: OxyCONTIN PO SCH (09:49)
[2016-12-26] MEDS ORDERED: DILAUDID IV PRN (12:00)
--- NOTE | 2016-12-26 14:39 | Consultation ---
History of Present Illness - Reason for Consult Consult date: 12/26/16 Evaluate for Acute IRU - History of Present Illness 86 y.o. female who presented after fall x2 at home and complaint of left hip pain; found to have an acute left hip fracture. Pt is now POD #2, left hip hemiarhtroplasty. On today, pt is very lethargic; likely secondary to pain medications. Consult requested for post-acute placement recommendations. History is per chart review due to lethargy and language barrier of in room. Past History Past Medical History: diabetes, hypertension, stroke Past Surgical History: total hip replacement Social history: , lives with family. denies: smoking, alcohol abuse Family history: no significant family history Medications and Allergies Allergies Allergy/AdvReac Type Severity Reaction Status Date / Time No Known Allergies Allergy Verified 12/24/16 06:01 Home Medications Medication Instructions Recorded Confirmed Last Taken Type Linagliptin [Tradjenta] 5 mg PO DAILY 12/24/16 12/24/16 Unknown History Mupirocin 0.5 gm TL 4XD 12/24/16 12/24/16 Unknown History Nifedipine ER 30 mg PO DAILY 12/24/16 12/24/16 Unknown History Potassium Chloride 20 meq PO DAILY 12/24/16 12/24/16 Unknown History Ranitidine HCl 150 mg PO BID 12/24/16 12/24/16 Unknown History Tramadol HCl 50 mg PO BID PRN 12/24/16 12/24/16 Unknown History Triamcinolone 0.5% 12/24/16 Unknown History Valsartan 80 mg PO DAILY 12/24/16 12/24/16 Unknown History glipiZIDE XL 5 mg PO DAILY 12/24/16 12/24/16 Unknown History predniSONE 5 mg PO QWEEK 12/24/16 12/24/16 Unknown History Active Meds: Active Medications Acetaminophen (Tylenol) 650 mg PO Q4H PRN PRN Reason: Pain MILD(1-3)/Fever >100.5/MORRISON Aspirin (Aspirin) 325 mg PO BID [facility] Last Admin: 12/25/16 23:24 Dose: 325 mg Bisacodyl (Dulcolax) 10 mg DC QDAY PRN PRN Reason: Constip unreliev by MOM/or NPO Famotidine (Pepcid) 20 mg PO DAILY [facility] Last Admin: 12/25/16 19:28 Dose: 20 mg Glipizide (Glucotrol Xl) 5 mg PO 0800 [facility] Hydromorphone HCl (Dilaudid) 0.5 mg IV Q4H PRN PRN Reason: Pain , Severe (7-10) Dextrose/Sodium Chloride (D5/0.45ns) 1,000 mls @ 75 mls/hr IV DIRECT [facility] Last Admin: 12/26/16 08:48 Dose: 75 mls/hr Insulin Aspart (Novolog) 0 units SUB-Q Q6HR [facility] PRN Reason: Protocol Last Admin: 12/26/16 06:15 Dose: 4 units Linagliptin (Tradjenta) 5 mg PO QDDIAB [facility] Magnesium Hydroxide (Milk Of Magnesia) 30 ml PO Q4H PRN PRN Reason: Constipation Morphine Sulfate (Morphine) 2 mg IV Q4H PRN PRN Reason: Pain, Moderate (4-6) Last Admin: 12/24/16 21:27 Dose: 2 mg Nifedipine (Procardia Xl) 30 mg PO QDAY [facility] Last Admin: 12/25/16 09:56 Dose: 30 mg Ondansetron HCl (Zofran) 4 mg IV Q3H PRN PRN Reason: Nausea And Vomiting Oxycodone/Acetaminophen (Percocet 5/325) 1 tab PO Q6H PRN PRN Reason: Pain, Moderate (4-6) Potassium Chloride (K-Dur) 20 meq PO QDAY [facility] Last Admin: 12/25/16 09:56 Dose: 20 meq Promethazine HCl (Phenergan) 25 mg DC Q6H PRN PRN Reason: Nausea And Vomiting Sodium Chloride (Sodium Chloride Flush Syringe 10 Ml) 10 ml IV PRN PRN PRN Reason: LINE FLUSH Valsartan (Diovan) 80 mg PO DAILY [facility] Last Admin: 12/25/16 09:57 Dose: 80 mg Review of Systems ROS unobtainable: due to mental status (lethargic) Exam - Constitutional Vitals: Vital Signs - 12hr 12/26/16 12/26/16 04:10 09:00 Temperature 98.6 F 99.2 F Pulse Rate [ 105 H Left Radial] Pulse Rate [ 113 H Right Brachial] Respiratory 18 18 Rate Blood Pressure 114/67 107/57 [Right Arm] O2 Sat by Pulse 96 95 Oximetry General appearance: other (lethargic; occasionally opens eyes, not following commands) - Neck Neck: supple - Respiratory Respiratory effort: normal Respiratory: bilateral: CTA - Cardiovascular Heart Sounds: Present: S1 & S2 - Extremities Extremities: No edema Extremity abnormal: other (reinforced post-op dressing in place to left hip) - Gastrointestinal General gastrointestinal: Present: soft, normal bowel sounds - Musculoskeletal Musculoskeletal: other (cannot be completed) - Neurologic Neurologic: other (cannot assess sensation) - Allied health notes Allied health notes reviewed: PT (min-modA for transfers; max-modA for bed mobility- on evaluation 12/25) - Labs CBC & Chem 7: 12/27/16 05:06 12/27/16 05:06 Labs: Laboratory Results - last 72 hr 12/24/16 12/24/16 12/24/16 07:52 11:11 14:02 WBC RBC Hgb Hct MCV MCH MCHC RDW Plt Count Lymph % (Auto) [place] % (Auto) Eos % (Auto) Baso % (Auto) Lymph # [place] # Eos # Baso # Seg Neutrophils % Seg Neutrophils # Sodium Potassium Chloride Carbon Dioxide Anion Gap BUN Creatinine Estimated GFR BUN/Creatinine Ratio Glucose POC Glucose 231 H 230 H 70 Calcium 12/24/16 12/24/16 12/25/16 15:58 22:09 05:57 WBC RBC Hgb Hct MCV MCH MCHC RDW Plt Count Lymph % (Auto) [place] % (Auto) Eos % (Auto) Baso % (Auto) Lymph # [place] # Eos # Baso # Seg Neutrophils % Seg Neutrophils # Sodium Potassium Chloride Carbon Dioxide Anion Gap BUN Creatinine Estimated GFR BUN/Creatinine Ratio Glucose POC Glucose 169 H 317 H 176 H Calcium 12/25/16 12/25/16 12/25/16 11:38 13:29 17:12 WBC RBC Hgb 11.1 Hct 35.7 MCV MCH MCHC RDW Plt Count Lymph % (Auto) [place] % (Auto) Eos % (Auto) Baso % (Auto) Lymph # [place] # Eos # Baso # Seg Neutrophils % Seg Neutrophils # Sodium Potassium Chloride Carbon Dioxide Anion Gap BUN Creatinine Estimated GFR BUN/Creatinine Ratio Glucose POC Glucose 231 H 372 H Calcium 12/25/16 12/26/16 12/26/16 23:45 06:03 08:18 WBC 10.5 RBC 3.95 Hgb 10.5 Hct 32.8 MCV 83 MCH 27 L MCHC 32 RDW 15.1 Plt Count 199 Lymph % (Auto) 12.9 L [place] % (Auto) 8.1 H Eos % (Auto) 1.0 Baso % (Auto) 0.1 Lymph # 1.4 [place] # 0.9 H Eos # 0.1 Baso # 0.0 Seg Neutrophils % 77.9 H Seg Neutrophils # 8.2 H Sodium Potassium Chloride Carbon Dioxide Anion Gap BUN Creatinine Estimated GFR BUN/Creatinine Ratio Glucose POC Glucose 317 H 258 H Calcium 12/26/16 08:18 WBC RBC Hgb Hct MCV MCH MCHC RDW Plt Count Lymph % (Auto) [place] % (Auto) Eos % (Auto) Baso % (Auto) Lymph # [place] # Eos # Baso # Seg Neutrophils % Seg Neutrophils # Sodium 134 L Potassium 3.7 Chloride 99.8 Carbon Dioxide 22 Anion Gap 16 BUN 14 Creatinine 1.1 Estimated GFR 47 BUN/Creatinine Ratio 12.72 Glucose 218 H POC Glucose Calcium 8.6 Assessment and Plan Patient was assessed and evaluated for Acute Inpatient Rehab Unit. 86 y.o. female with history of DM, HTN, s/p fall and subsequent left hip fracture; POD# 2, left hip hemiarthroplasty. Pt is very lethargic on today; likely due to pain medications; case discussed with IM for medication adjustments. Pt also noted to be tachycardic on today. Unclear at this time if patient will be most appropriate for IRU vs SNF; however, will continue to follow mental status. Resume PT when patient is more alert and able to follow commands. Will follow; thank you for consultation. - Patient Problems (1) Closed left hip fracture Current Visit: Yes Status: Acute Qualifiers: Encounter type: initial encounter Fracture healing: F Qualified Code(s): S72.002A - Fracture of unspecified part of neck of left femur, initial encounter for closed fracture (2) S/P hip hemiarthroplasty Current Visit: Yes Status: Acute (3) Tachycardia Current Visit: Yes Status: Acute (4) HTN (hypertension) Current Visit: Yes Status: Acute Qualifiers: Hypertension type: essential hypertension Qualified Code(s): I10 - Essential (primary) hypertension (5) Diabetes Current Visit: Yes Status: Chronic Qualifiers: Diabetes mellitus type: type 2 Diabetes mellitus complication status: with hyperglycemia Diabetes mellitus complication detail: D Diabetic retinopathy severity: D Proliferative retinopathy type: P Diabetes mellitus macular edema: D Diabetes mellitus nursing home insulin use: without nursing home use Laterality: L Chronic kidney disease stage: C Qualified Code(s): E11.65 - Type 2 diabetes mellitus with hyperglycemia
--- NOTE | 2016-12-26 14:42 | Progress Note ---
Assessment and Plan Assessment and plan: 86-year-old female with a past medical history previous CVA presents to the hospital with complaints of left hip pain and left head injury status post fall. Patient fell out of bed day before admission. Also patient is "acting different". Patient complains of pain to left hip. on arrival was noted to have close left hip fracture. There was no report of loss of consciousness 1. Hip fracture. Orthopedics to perform surgery 2. History CVA. Continue supportive care. 3. s/p fall. No LOC. PT/OT postoperatively. 4. Diabetes Mellitus; - Continue current medication, will adjust insulin. 5. Metabolic Encephalopathy- Initially was secondary to pain, but likely now due to Pain meds. Pt was on oxycodone, will discontinue and use PRN meds. 6. Disposition. Encourage out of bed to chair. PT/OT. Patient will need likely SNF. Discussed finding and plan with patient and spouse, also with Dr Dial. History Interval history: Patient seen and examined this morning in no acute distress, but very lethargic and drowsy. Interpretation through , patient has not had any bowel movement for 2 days. Low grade fever noted yesterday none today. Denies any chest pain, nausea, vomiting, diarrhea No adverse events reported to me by nursing staff Hospitalist Physical - Physical exam Narrative exam: VITAL SIGNS: Reviewed. GENERAL: The patient appeared well nourished and normally developed. Vital signs as documented. HEAD: No signs of head trauma. EYES: Pupils are equal. Extraocular motions intact. EARS: Hearing grossly intact. MOUTH: Oropharynx is normal. NECK: No adenopathy, no JVD. CHEST: Chest with clear breath sounds bilaterally. No wheezes, rales, or rhonchi. CARDIAC: Regular rate and rhythm. S1 and S2, without murmurs, gallops, or rubs. VASCULAR: No Edema. Peripheral pulses normal and equal in all extremities. ABDOMEN: Soft, without detectable tenderness. No sign of distention. No rebound or guarding, and no masses palpated. Bowel Sounds normal. MUSCULOSKELETAL: LEFT surgical site, tender. No overt drainage. Extremities without clubbing, cyanosis or edema. NEUROLOGIC EXAM: Drowsy. PSYCHIATRIC: Mood normal. SKIN: No rash or lesions. - Constitutional Vitals: Temp Pulse Resp BP Pulse Ox 99.2 F 105 H 18 107/57 95 12/26/16 09:00 12/26/16 09:00 12/26/16 09:00 12/26/16 09:00 12/26/16 09:00 General appearance: Present: no acute distress, well-nourished Results - Labs CBC & Chem 7: 12/26/16 08:18 12/26/16 08:18 Labs: Laboratory Last Values WBC 10.5 K/mm3 (4.5-11.0) 12/26/16 08:18 RBC 3.95 M/mm3 (3.65-5.03) 12/26/16 08:18 Hgb 10.5 gm/dl (10.1-14.3) 12/26/16 08:18 Hct 32.8 % (30.3-42.9) 12/26/16 08:18 MCV 83 fl (79-97) 12/26/16 08:18 MCH 27 pg (28-32) L 12/26/16 08:18 MCHC 32 % (30-34) 12/26/16 08:18 RDW 15.1 % (13.2-15.2) 12/26/16 08:18 Plt Count 199 K/mm3 (140-440) 12/26/16 08:18 Lymph % (Auto) 12.9 % (13.4-35.0) L 12/26/16 08:18 [place] % (Auto) 8.1 % (0.0-7.3) H 12/26/16 08:18 Eos % (Auto) 1.0 % (0.0-4.3) 12/26/16 08:18 Baso % (Auto) 0.1 % (0.0-1.8) 12/26/16 08:18 Lymph # 1.4 K/mm3 (1.2-5.4) 12/26/16 08:18 [place] # 0.9 K/mm3 (0.0-0.8) H 12/26/16 08:18 Eos # 0.1 K/mm3 (0.0-0.4) 12/26/16 08:18 Baso # 0.0 K/mm3 (0.0-0.1) 12/26/16 08:18 Seg Neutrophils % 77.9 % (40.0-70.0) H 12/26/16 08:18 Seg Neutrophils # 8.2 K/mm3 (1.8-7.7) H 12/26/16 08:18 PT 13.1 Sec. (12.2-14.9) 12/23/16 19:20 INR 1.00 (0.87-1.13) 12/23/16 19:20 APTT 32.0 Sec. (24.2-36.6) 12/23/16 19:20 Sodium 134 mmol/L (137-145) L 12/26/16 08:18 Potassium 3.7 mmol/L (3.6-5.0) 12/26/16 08:18 Chloride 99.8 mmol/L (98-107) 12/26/16 08:18 Carbon Dioxide 22 mmol/L (22-30) 12/26/16 08:18 Anion Gap 16 mmol/L 12/26/16 08:18 BUN 14 mg/dL (7-17) 12/26/16 08:18 Creatinine 1.1 mg/dL (0.7-1.2) 12/26/16 08:18 Estimated GFR 47 ml/min 12/26/16 08:18 BUN/Creatinine Ratio 12.72 % 12/26/16 08:18 Glucose 218 mg/dL (65-100) H 12/26/16 08:18 POC Glucose 258 (70-105) H 12/26/16 06:03 Calcium 8.6 mg/dL (8.4-10.2) 12/26/16 08:18 Total Bilirubin 0.6 mg/dL (0.1-1.2) 12/23/16 19:20 AST 18 units/L (5-40) 12/23/16 19:20 ALT 10 units/L (7-56) 12/23/16 19:20 Alkaline Phosphatase 107 units/L (35-129) 12/23/16 19:20 Ammonia 32.0 umol/L (25-60) 12/23/16 19:20 Total Creatine Kinase 98 units/L (30-135) 12/23/16 19:20 CK-MB (CK-2) 1.8 ng/mL (0.0-4.0) 12/23/16 19:20 CK-MB (CK-2) Rel Index 1.8 (0-4) 12/23/16 19:20 Troponin T < 0.010 ng/mL (0.00-0.029) 12/23/16 19:20 Total Protein 7.4 g/dL (6.3-8.2) 12/23/16 19:20 Albumin 3.9 g/dL (3.9-5) 12/23/16 19:20 Albumin/Globulin Ratio 1.1 % 12/23/16 19:20 TSH 2.180 mlU/mL (0.270-4.200) 12/23/16 19:20 Free T4 1.38 ng/dL (0.76-1.46) 12/23/16 19:20
[2016-12-26] MEDS: TRADJENTA PO SCH (17:45)
[2016-12-26] MEDS: GLUCOTROL XL PO SCH (17:46)
[2016-12-27] MEDS: NOVOLOG SUB-Q SCH ×4 (00:45→18:00)
[2016-12-27] MEDS: D5/0.45NS 1,000 ML IV SCH ×2 (01:06→12:45)
[2016-12-27 05:52] LABS: Hemoglobin 10.3 gm/dl (10.1-14.3); Mean Corpuscular HGB Conc 32 % (30-34); Mean Corpuscular Hemoglobin 27 pg (28-32); Mean Corpuscular Volume 82 fl (79-97); Platelet Count 175 K/mm3 (140-440); Red Blood Count 3.89 M/mm3 (3.65-5.03); Red Cell Distribution Width 15.5 % (13.2-15.2); White Blood Count 10.1 K/mm3 (4.5-11.0)
[2016-12-27 06:10] LABS: BUN/Creatinine Ratio 10.66; Calcium 8.5 mg/dL (8.4-10.2); Chloride 98.2 mmol/L (98-107); Potassium 3.8 mmol/L (3.6-5.0)
[2016-12-27] MEDS ORDERED: GLUCOTROL PO SCH (08:00)
[2016-12-27] MEDS: TRADJENTA PO SCH (08:14)
[2016-12-27] MEDS: GLUCOTROL XL PO SCH (08:14)
--- NOTE | 2016-12-27 08:37 | Progress Note ---
Assessment and Plan - Patient Problems (1) Closed left hip fracture Current Visit: Yes Status: Acute Qualifiers: Encounter type: initial encounter Fracture healing: F Qualified Code(s): S72.002A - Fracture of unspecified part of neck of left femur, initial encounter for closed fracture Plan to address problem: Continue with pain management, rehabilitation program, partial weightbearing and DVT prophylaxis, mechanical. Patient may be discharged to [facility]/SNF when medically cleared, followup in the office in 2 weeks upon discharge. Subjective Date of service: 12/27/16 Principal diagnosis: Fx hip/ s/p Bipolar nelda arthroplasty Interval history: Complaints of pain, no acute changes. Out of bed with rehabilitation. Objective Vital signs: Vital Signs - 12hr 12/26/16 12/26/16 22:00 23:44 Temperature 101.3 F H Pulse Rate [ 100 H 121 H Left Radial] Respiratory 20 Rate Respiratory 16 Rate [Left Leg] Blood Pressure 126/76 [Right Arm] O2 Sat by Pulse 98 97 Oximetry - Labs CBC & BMP: 12/28/16 04:30 12/28/16 04:30 Labs: Abnormal lab results 12/26/16 12/26/16 12/26/16 Range/Units 08:18 08:18 15:11 MCH 27 L (28-32) pg RDW (13.2-15.2) % Lymph % (Auto) 12.9 L (13.4-35.0) % [place] % (Auto) 8.1 H (0.0-7.3) % [place] # 0.9 H (0.0-0.8) K/mm3 Seg Neutrophils % 77.9 H (40.0-70.0) % Seg Neutrophils # 8.2 H (1.8-7.7) K/mm3 Sodium 134 L (137-145) mmol/L Carbon Dioxide (22-30) mmol/L Creatinine (0.7-1.2) mg/dL Glucose 218 H (65-100) mg/dL POC Glucose 415 H (70-105) 12/26/16 12/27/16 12/27/16 Range/Units 22:37 05:06 05:06 MCH 27 L (28-32) pg RDW 15.5 H (13.2-15.2) % Lymph % (Auto) (13.4-35.0) % [place] % (Auto) (0.0-7.3) % [place] # (0.0-0.8) K/mm3 Seg Neutrophils % (40.0-70.0) % Seg Neutrophils # (1.8-7.7) K/mm3 Sodium 133 L (137-145) mmol/L Carbon Dioxide 21 L (22-30) mmol/L Creatinine 1.5 H (0.7-1.2) mg/dL Glucose 276 H (65-100) mg/dL POC Glucose 206 H (70-105) 12/27/16 Range/Units 06:23 MCH (28-32) pg RDW (13.2-15.2) % Lymph % (Auto) (13.4-35.0) % [place] % (Auto) (0.0-7.3) % [place] # (0.0-0.8) K/mm3 Seg Neutrophils % (40.0-70.0) % Seg Neutrophils # (1.8-7.7) K/mm3 Sodium (137-145) mmol/L Carbon Dioxide (22-30) mmol/L Creatinine (0.7-1.2) mg/dL Glucose (65-100) mg/dL POC Glucose 294 H (70-105)
--- NOTE | 2016-12-27 11:17 | Progress Note ---
Assessment and Plan Assessment and plan: 1. Hip fracture. Orthopedics to perform surgery 2. History CVA. Continue supportive care. 3. s/p fall. No LOC. PT/OT postoperatively. 4. Fever. Check CBC, blood cultures and urinalysis. 5. Disposition. Patient will need likely acute rehabilitation placement. History Interval history: No new issues overnight. However, patient had fever yesterday. Hospitalist Physical - Constitutional Vitals: Temp Pulse Resp BP Pulse Ox 101.3 F H 121 H 20 126/76 97 12/26/16 23:44 12/26/16 23:44 12/26/16 23:44 12/26/16 23:44 12/26/16 23:44 General appearance: Present: no acute distress, well-nourished - EENT Eyes: Present: PERRL, EOM intact ENT: hearing intact, clear oral mucosa, dentition normal - Neck Neck: Present: supple, normal ROM - Respiratory Respiratory effort: normal Respiratory: bilateral: CTA - Cardiovascular Rhythm: regular Heart Sounds: Present: S1 & S2. Absent: gallop, rub - Extremities Extremities: no ischemia, No edema, Full ROM - Abdominal General gastrointestinal: soft, non-tender, non-distended, normal bowel sounds - Integumentary Integumentary: Present: clear, warm, dry - Neurologic Neurologic: CNII-XII intact, moves all extremities Results - Labs CBC & Chem 7: 12/27/16 05:06 12/27/16 05:06 Labs: Laboratory Last Values WBC 10.1 K/mm3 (4.5-11.0) 12/27/16 05:06 RBC 3.89 M/mm3 (3.65-5.03) 12/27/16 05:06 Hgb 10.3 gm/dl (10.1-14.3) 12/27/16 05:06 Hct 32.0 % (30.3-42.9) 12/27/16 05:06 MCV 82 fl (79-97) 12/27/16 05:06 MCH 27 pg (28-32) L 12/27/16 05:06 MCHC 32 % (30-34) 12/27/16 05:06 RDW 15.5 % (13.2-15.2) H 12/27/16 05:06 Plt Count 175 K/mm3 (140-440) 12/27/16 05:06 Lymph % (Auto) 12.9 % (13.4-35.0) L 12/26/16 08:18 [place] % (Auto) 8.1 % (0.0-7.3) H 12/26/16 08:18 Eos % (Auto) 1.0 % (0.0-4.3) 12/26/16 08:18 Baso % (Auto) 0.1 % (0.0-1.8) 12/26/16 08:18 Lymph # 1.4 K/mm3 (1.2-5.4) 12/26/16 08:18 [place] # 0.9 K/mm3 (0.0-0.8) H 12/26/16 08:18 Eos # 0.1 K/mm3 (0.0-0.4) 12/26/16 08:18 Baso # 0.0 K/mm3 (0.0-0.1) 12/26/16 08:18 Seg Neutrophils % 77.9 % (40.0-70.0) H 12/26/16 08:18 Seg Neutrophils # 8.2 K/mm3 (1.8-7.7) H 12/26/16 08:18 PT 13.1 Sec. (12.2-14.9) 12/23/16 19:20 INR 1.00 (0.87-1.13) 12/23/16 19:20 APTT 32.0 Sec. (24.2-36.6) 12/23/16 19:20 Sodium 133 mmol/L (137-145) L 12/27/16 05:06 Potassium 3.8 mmol/L (3.6-5.0) 12/27/16 05:06 Chloride 98.2 mmol/L (98-107) 12/27/16 05:06 Carbon Dioxide 21 mmol/L (22-30) L 12/27/16 05:06 Anion Gap 18 mmol/L 12/27/16 05:06 BUN 16 mg/dL (7-17) 12/27/16 05:06 Creatinine 1.5 mg/dL (0.7-1.2) H 12/27/16 05:06 Estimated GFR 33 ml/min 12/27/16 05:06 BUN/Creatinine Ratio 10.66 % 12/27/16 05:06 Glucose 276 mg/dL (65-100) H 12/27/16 05:06 POC Glucose 294 (70-105) H 12/27/16 06:23 Calcium 8.5 mg/dL (8.4-10.2) 12/27/16 05:06 Total Bilirubin 0.6 mg/dL (0.1-1.2) 12/23/16 19:20 AST 18 units/L (5-40) 12/23/16 19:20 ALT 10 units/L (7-56) 12/23/16 19:20 Alkaline Phosphatase 107 units/L (35-129) 12/23/16 19:20 Ammonia 32.0 umol/L (25-60) 12/23/16 19:20 Total Creatine Kinase 98 units/L (30-135) 12/23/16 19:20 CK-MB (CK-2) 1.8 ng/mL (0.0-4.0) 12/23/16 19:20 CK-MB (CK-2) Rel Index 1.8 (0-4) 12/23/16 19:20 Troponin T < 0.010 ng/mL (0.00-0.029) 12/23/16 19:20 Total Protein 7.4 g/dL (6.3-8.2) 12/23/16 19:20 Albumin 3.9 g/dL (3.9-5) 12/23/16 19:20 Albumin/Globulin Ratio 1.1 % 12/23/16 19:20 TSH 2.180 mlU/mL (0.270-4.200) 12/23/16 19:20 Free T4 1.38 ng/dL (0.76-1.46) 12/23/16 19:20
--- NOTE | 2016-12-27 12:19 | XRay Report ---
Single view chest: Compared to 12/23/16. History: Fever. Findings: Normal cardiomediastinal silhouette. Trachea is midline. Linear density right perihilar area suggestive of discoid atelectasis/pneumonia. Normal CP angles. Impression: Discoid atelectasis/pneumonia right perihilar area.
[2016-12-27] MEDS: ASPIRIN PO SCH ×2 (12:45→21:10)
[2016-12-27] MEDS: PEPCID PO SCH (12:45)
[2016-12-27] MEDS: K-DUR PO SCH (12:45)
[2016-12-27] MEDS: PROCARDIA XL PO SCH (12:45)
[2016-12-27] MEDS: DIOVAN PO SCH (12:45)
--- NOTE | 2016-12-27 16:36 | Event Note ---
Date: 12/27/16 IRU F/U, s/p hip fracture. Pt seen in room this morning; more alert on today. However, noted to have spiked a fever overnight of 101.3; last temp 12/25 of 100.8; also tachycardic, HR 100-121. UA, blood cultures, CXR ordered; ?right PNA. MaxA x2 for transfers with PT on yesterday. IRU online content coordinator to speak with granddaughter for discharge planning. Will continue to follow.
--- NOTE | 2016-12-27 23:54 | Operative Report ---
PREOPERATIVE DIAGNOSIS: Fracture, left femoral neck, hip. POSTOPERATIVE DIAGNOSIS: Fracture, left femoral neck, hip. PROCEDURE: Bipolar left hip arthroplasty, (direct lateral approach). SURGEON: Amber Garcia MD AUDIO VIDEO TECHNICIAN: Ashli Cote RN ANESTHESIA: General. COMPLICATIONS: None. FINDINGS: Fracture of the femoral neck, displaced; osteoporosis. PROCEDURE IN DETAIL: Once the patient was in the surgical room, a time-out was carried out to identify the patient and procedure. The patient was placed on the surgical table, appropriately placed for approach to the hip joint with the patient on her side with appropriate padding. After the timeout, prepping, and draping, the procedure was carried out with a 15-cm incision lateral to the hip joint. Dissection was carried out to subcutaneous tissues. The dissection was carried out anterior to the greater trochanter of the hip. The anterior third of the abductor mechanism, and the capsule of the hip joint was taken down as a single layer and elevated anteriorly exposing the fracture and the femoral neck. Once this was carried out, a resection of the femoral neck was carried out with a saw. Once the neck was cut, a femoral head was removed and measured. The acetabulum was inspected. At this point, using a Peg Bandwidth cutter, ostectomy of the lateral aspect of the neck was carried out, this allowed for direct entry into the hip joint into the femur using an axial reamer. This was enlarged with multiple reamers followed by rasps. Trialing of the rasp was done on the hip to demonstrate length. Once this was determined, the procedure was continued by irrigation of the wound, the insertion of the stem, which was inserted using a monitored retail delivery driver, the assembling of the bipolar head, reduction into the socket. Leg length was correct. The procedure was continued by using #5 Ethibond suture, that was used to be able to suture the anterior capsule and the abductor mechanism, back to the trochanter with multiple interrupted sutures. The wound was irrigated with saline solution and tranexamic acid. The wound was then closed using #1 Vicryl to close the fascia and the tensor fascia boubacar, subcutaneous tissues closed with #2-0 Vicryl, the skin with skin clips. Compression bandage applied. The patient supported procedure well. There were no complications. JOB# [id number] SERAFIN/GUERLINE
[2016-12-28] MEDS: PERCOCET 5/325 PO PRN (02:48)
[2016-12-28 05:17] LABS: Basophils % (Auto) 0.2 % (0.0-1.8); Eosinophils % (Auto) 1.5 % (0.0-4.3); Hematocrit 30.9 % (30.3-42.9); Hemoglobin 9.9 gm/dl (10.1-14.3); Mean Corpuscular HGB Conc 32 % (30-34); Mean Corpuscular Hemoglobin 26 pg (28-32); Mean Corpuscular Volume 82 fl (79-97); Platelet Count 158 K/mm3 (140-440); Red Blood Count 3.76 M/mm3 (3.65-5.03); Red Cell Distribution Width 15.7 % (13.2-15.2); White Blood Count 10.1 K/mm3 (4.5-11.0)
[2016-12-28 05:28] LABS: Calcium 8.3 mg/dL (8.4-10.2); Potassium 3.4 mmol/L (3.6-5.0)
[2016-12-28] MEDS: NOVOLOG SUB-Q SCH ×4 (05:47→17:33)
[2016-12-28] MEDS: TRADJENTA PO SCH (07:22)
[2016-12-28] MEDS: GLUCOTROL XL PO SCH (07:23)
[2016-12-28] MEDS: ASPIRIN PO SCH ×2 (09:44→21:59)
[2016-12-28] MEDS: PEPCID PO SCH (09:45)
[2016-12-28] MEDS: PROCARDIA XL PO SCH (09:48)
[2016-12-28] MEDS: K-DUR PO SCH (09:49)
--- NOTE | 2016-12-28 10:06 | Progress Note ---
Assessment and Plan elderly female in minimal pain Chest clear, soft abdomen neuro intact wound ok May be DC to rehab as per medicine Subjective Date of service: 12/28/16 Principal diagnosis: Fx hip/ s/p Bipolar nelda arthroplasty Objective Vital signs: Vital Signs - 12hr 12/27/16 12/28/16 12/28/16 23:33 02:48 08:04 Temperature 98.9 F 98.0 F Pulse Rate [ 108 H 92 H Left Radial] Respiratory 18 20 16 Rate Blood Pressure 121/71 105/57 [Right Arm] O2 Sat by Pulse 95 96 Oximetry - Labs CBC & BMP: 12/28/16 04:30 12/28/16 04:30 Labs: Abnormal lab results 12/27/16 12/27/16 12/27/16 Range/Units 12:04 17:30 23:23 Hgb (10.1-14.3) gm/dl MCH (28-32) pg RDW (13.2-15.2) % Lymph % (Auto) (13.4-35.0) % [place] % (Auto) (0.0-7.3) % Lymph # (1.2-5.4) K/mm3 [place] # (0.0-0.8) K/mm3 Seg Neutrophils % (40.0-70.0) % Seg Neutrophils # (1.8-7.7) K/mm3 Sodium (137-145) mmol/L Potassium (3.6-5.0) mmol/L Carbon Dioxide (22-30) mmol/L Glucose (65-100) mg/dL POC Glucose 253 H 178 H 249 H (70-105) Calcium (8.4-10.2) mg/dL 12/28/16 12/28/16 12/28/16 Range/Units 04:30 04:30 05:00 Hgb 9.9 L (10.1-14.3) gm/dl MCH 26 L (28-32) pg RDW 15.7 H (13.2-15.2) % Lymph % (Auto) 9.1 L (13.4-35.0) % [place] % (Auto) 10.0 H (0.0-7.3) % Lymph # 0.9 L (1.2-5.4) K/mm3 [place] # 1.0 H (0.0-0.8) K/mm3 Seg Neutrophils % 79.2 H (40.0-70.0) % Seg Neutrophils # 8.0 H (1.8-7.7) K/mm3 Sodium 134 L (137-145) mmol/L Potassium 3.4 L (3.6-5.0) mmol/L Carbon Dioxide 20 L (22-30) mmol/L Glucose 315 H (65-100) mg/dL POC Glucose 315 H (70-105) Calcium 8.3 L (8.4-10.2) mg/dL
--- NOTE | 2016-12-28 10:32 | Progress Note ---
Assessment and Plan Assessment and plan: 1. Hip fracture. Orthopedics to perform surgery 2. History CVA. Continue supportive care. 3. s/p fall. No LOC. PT/OT postoperatively. 4. Fever. Resolved. CBC ok, blood cultures and urinalysis pending. 5. Disposition. Patient will need likely acute rehabilitation placement. History Interval history: No new issues overnight. Hospitalist Physical - Constitutional Vitals: Temp Pulse Resp BP Pulse Ox 98.0 F 92 H 16 105/57 96 12/28/16 08:04 12/28/16 08:04 12/28/16 08:04 12/28/16 08:04 12/28/16 08:04 General appearance: Present: other (lethargic; occasionally opens eyes, not following commands) - EENT Eyes: Present: PERRL, EOM intact ENT: hearing intact, clear oral mucosa, dentition normal - Neck Neck: Present: supple, normal ROM - Respiratory Respiratory effort: normal Respiratory: bilateral: CTA - Cardiovascular Rhythm: regular Heart Sounds: Present: S1 & S2. Absent: gallop, rub - Extremities Extremities: no ischemia, No edema, Full ROM - Abdominal General gastrointestinal: soft, non-tender, non-distended, normal bowel sounds - Integumentary Integumentary: Present: clear, warm, dry - Neurologic Neurologic: CNII-XII intact, moves all extremities Results - Labs CBC & Chem 7: 12/28/16 04:30 12/28/16 04:30 Labs: Laboratory Last Values WBC 10.1 K/mm3 (4.5-11.0) 12/28/16 04:30 RBC 3.76 M/mm3 (3.65-5.03) 12/28/16 04:30 Hgb 9.9 gm/dl (10.1-14.3) L 12/28/16 04:30 Hct 30.9 % (30.3-42.9) 12/28/16 04:30 MCV 82 fl (79-97) 12/28/16 04:30 MCH 26 pg (28-32) L 12/28/16 04:30 MCHC 32 % (30-34) 12/28/16 04:30 RDW 15.7 % (13.2-15.2) H 12/28/16 04:30 Plt Count 158 K/mm3 (140-440) 12/28/16 04:30 Lymph % (Auto) 9.1 % (13.4-35.0) L 12/28/16 04:30 [place] % (Auto) 10.0 % (0.0-7.3) H 12/28/16 04:30 Eos % (Auto) 1.5 % (0.0-4.3) 12/28/16 04:30 Baso % (Auto) 0.2 % (0.0-1.8) 12/28/16 04:30 Lymph # 0.9 K/mm3 (1.2-5.4) L 12/28/16 04:30 [place] # 1.0 K/mm3 (0.0-0.8) H 12/28/16 04:30 Eos # 0.2 K/mm3 (0.0-0.4) 12/28/16 04:30 Baso # 0.0 K/mm3 (0.0-0.1) 12/28/16 04:30 Seg Neutrophils % 79.2 % (40.0-70.0) H 12/28/16 04:30 Seg Neutrophils # 8.0 K/mm3 (1.8-7.7) H 12/28/16 04:30 PT 13.1 Sec. (12.2-14.9) 12/23/16 19:20 INR 1.00 (0.87-1.13) 12/23/16 19:20 APTT 32.0 Sec. (24.2-36.6) 12/23/16 19:20 Sodium 134 mmol/L (137-145) L 12/28/16 04:30 Potassium 3.4 mmol/L (3.6-5.0) L 12/28/16 04:30 Chloride 99.0 mmol/L (98-107) 12/28/16 04:30 Carbon Dioxide 20 mmol/L (22-30) L 12/28/16 04:30 Anion Gap 18 mmol/L 12/28/16 04:30 BUN 14 mg/dL (7-17) 12/28/16 04:30 Creatinine 1.0 mg/dL (0.7-1.2) 12/28/16 04:30 Estimated GFR 52 ml/min 12/28/16 04:30 BUN/Creatinine Ratio 14.00 % 12/28/16 04:30 Glucose 315 mg/dL (65-100) H 12/28/16 04:30 POC Glucose 315 (70-105) H 12/28/16 05:00 Calcium 8.3 mg/dL (8.4-10.2) L 12/28/16 04:30 Total Bilirubin 0.6 mg/dL (0.1-1.2) 12/23/16 19:20 AST 18 units/L (5-40) 12/23/16 19:20 ALT 10 units/L (7-56) 12/23/16 19:20 Alkaline Phosphatase 107 units/L (35-129) 12/23/16 19:20 Ammonia 32.0 umol/L (25-60) 12/23/16 19:20 Total Creatine Kinase 98 units/L (30-135) 12/23/16 19:20 CK-MB (CK-2) 1.8 ng/mL (0.0-4.0) 12/23/16 19:20 CK-MB (CK-2) Rel Index 1.8 (0-4) 12/23/16 19:20 Troponin T < 0.010 ng/mL (0.00-0.029) 12/23/16 19:20 Total Protein 7.4 g/dL (6.3-8.2) 12/23/16 19:20 Albumin 3.9 g/dL (3.9-5) 12/23/16 19:20 Albumin/Globulin Ratio 1.1 % 12/23/16 19:20 TSH 2.180 mlU/mL (0.270-4.200) 12/23/16 19:20 Free T4 1.38 ng/dL (0.76-1.46) 12/23/16 19:20
[2016-12-28] MEDS: DIOVAN PO SCH (10:34)
[2016-12-28] MEDS: D5/0.45NS 1,000 ML IV SCH (16:00)
[2016-12-29] MEDS: NOVOLOG SUB-Q SCH ×4 (00:55→18:08)
[2016-12-29] MEDS: PERCOCET 5/325 PO PRN (00:56)
[2016-12-29] MEDS: D5/0.45NS 1,000 ML IV SCH ×2 (03:56→23:25)
[2016-12-29] MEDS: GLUCOTROL XL PO SCH (09:00)
[2016-12-29] MEDS: TRADJENTA PO SCH (09:00)
[2016-12-29] MEDS: ASPIRIN PO SCH ×2 (12:22→23:24)
[2016-12-29] MEDS: DIOVAN PO SCH (12:22)
[2016-12-29] MEDS: PEPCID PO SCH (12:23)
[2016-12-29] MEDS: PROCARDIA XL PO SCH (12:23)
[2016-12-29] MEDS: K-DUR PO SCH (12:23)
[2016-12-29] MEDS ORDERED: MIRALAX 3350 PO PRN (13:03)
--- NOTE | 2016-12-29 13:03 | Progress Note ---
Assessment and Plan Assessment and plan: 1. Hip fracture. Orthopedics to perform surgery 2. History CVA. Continue supportive care. 3. s/p fall. No LOC. PT/OT postoperatively. 4. Fever. Resolved. CBC ok, blood cultures and urinalysis pending. 5. Disposition. Patient will need likely acute rehabilitation placement. 6. Constipation. We will start MiraLAX. History Interval history: No new issues overnight. Family reports patient has not had a bowel movement in a few days. Hospitalist Physical - Constitutional Vitals: Temp Pulse Resp BP Pulse Ox 98.0 F 112 H 18 123/78 97 12/29/16 08:53 12/29/16 08:53 12/29/16 08:53 12/29/16 08:53 12/29/16 08:53 General appearance: Present: other (lethargic; occasionally opens eyes, not following commands) - EENT Eyes: Present: PERRL, EOM intact ENT: hearing intact, clear oral mucosa, dentition normal - Neck Neck: Present: supple, normal ROM - Respiratory Respiratory effort: normal Respiratory: bilateral: CTA - Cardiovascular Rhythm: regular Heart Sounds: Present: S1 & S2. Absent: gallop, rub - Extremities Extremities: no ischemia, No edema, Full ROM - Abdominal General gastrointestinal: soft, non-tender, non-distended, normal bowel sounds - Integumentary Integumentary: Present: clear, warm, dry - Neurologic Neurologic: CNII-XII intact, moves all extremities Results - Labs CBC & Chem 7: 12/28/16 04:30 12/28/16 04:30 Labs: Laboratory Last Values WBC 10.1 K/mm3 (4.5-11.0) 12/28/16 04:30 RBC 3.76 M/mm3 (3.65-5.03) 12/28/16 04:30 Hgb 9.9 gm/dl (10.1-14.3) L 12/28/16 04:30 Hct 30.9 % (30.3-42.9) 12/28/16 04:30 MCV 82 fl (79-97) 12/28/16 04:30 MCH 26 pg (28-32) L 12/28/16 04:30 MCHC 32 % (30-34) 12/28/16 04:30 RDW 15.7 % (13.2-15.2) H 12/28/16 04:30 Plt Count 158 K/mm3 (140-440) 12/28/16 04:30 Lymph % (Auto) 9.1 % (13.4-35.0) L 12/28/16 04:30 [place] % (Auto) 10.0 % (0.0-7.3) H 12/28/16 04:30 Eos % (Auto) 1.5 % (0.0-4.3) 12/28/16 04:30 Baso % (Auto) 0.2 % (0.0-1.8) 12/28/16 04:30 Lymph # 0.9 K/mm3 (1.2-5.4) L 12/28/16 04:30 [place] # 1.0 K/mm3 (0.0-0.8) H 12/28/16 04:30 Eos # 0.2 K/mm3 (0.0-0.4) 12/28/16 04:30 Baso # 0.0 K/mm3 (0.0-0.1) 12/28/16 04:30 Seg Neutrophils % 79.2 % (40.0-70.0) H 12/28/16 04:30 Seg Neutrophils # 8.0 K/mm3 (1.8-7.7) H 12/28/16 04:30 PT 13.1 Sec. (12.2-14.9) 12/23/16 19:20 INR 1.00 (0.87-1.13) 12/23/16 19:20 APTT 32.0 Sec. (24.2-36.6) 12/23/16 19:20 Sodium 134 mmol/L (137-145) L 12/28/16 04:30 Potassium 3.4 mmol/L (3.6-5.0) L 12/28/16 04:30 Chloride 99.0 mmol/L (98-107) 12/28/16 04:30 Carbon Dioxide 20 mmol/L (22-30) L 12/28/16 04:30 Anion Gap 18 mmol/L 12/28/16 04:30 BUN 14 mg/dL (7-17) 12/28/16 04:30 Creatinine 1.0 mg/dL (0.7-1.2) 12/28/16 04:30 Estimated GFR 52 ml/min 12/28/16 04:30 BUN/Creatinine Ratio 14.00 % 12/28/16 04:30 Glucose 315 mg/dL (65-100) H 12/28/16 04:30 POC Glucose 231 (70-105) H 12/29/16 11:45 Calcium 8.3 mg/dL (8.4-10.2) L 12/28/16 04:30 Total Bilirubin 0.6 mg/dL (0.1-1.2) 12/23/16 19:20 AST 18 units/L (5-40) 12/23/16 19:20 ALT 10 units/L (7-56) 12/23/16 19:20 Alkaline Phosphatase 107 units/L (35-129) 12/23/16 19:20 Ammonia 32.0 umol/L (25-60) 12/23/16 19:20 Total Creatine Kinase 98 units/L (30-135) 12/23/16 19:20 CK-MB (CK-2) 1.8 ng/mL (0.0-4.0) 12/23/16 19:20 CK-MB (CK-2) Rel Index 1.8 (0-4) 12/23/16 19:20 Troponin T < 0.010 ng/mL (0.00-0.029) 12/23/16 19:20 Total Protein 7.4 g/dL (6.3-8.2) 12/23/16 19:20 Albumin 3.9 g/dL (3.9-5) 12/23/16 19:20 Albumin/Globulin Ratio 1.1 % 12/23/16 19:20 TSH 2.180 mlU/mL (0.270-4.200) 12/23/16 19:20 Free T4 1.38 ng/dL (0.76-1.46) 12/23/16 19:20
[2016-12-29] MEDS: MORPHINE IV PRN (23:23)
[2016-12-30] MEDS: NOVOLOG SUB-Q SCH ×4 (00:35→17:55)
--- NOTE | 2016-12-30 07:51 | Discharge Summary ---
<GERTRUDIS REYES - Last Filed: 12/30/16 07:46> Providers - Providers Date of Admission: 12/23/16 20:48 Date of discharge: 12/30/16 Attending physician: GERTRUDIS REYES 12/24/16 13:00 Physical Therapy Evaluation and Treat [CONS] Routine Comment: avoid flexion, add, int rotation of operative hip Reason For Exam: fracture left hip Mode of Transport?: Wheelchair Weight bearing status?: Full wt bearing Assistive devices?: Yes If so list: Walker 12/25/16 16:35 Consult Acute Rehabilitation [CONS] Routine Consulting Provider: OCTAVIO NAILS Reason For Exam: s/p hip fracture Primary care physician: AUTOMOTIVE PARTS COORDINATOR Hospitalization Reason for admission: hip fx Condition: Stable Hospital course: This is an 86-year-old female with past medical history of hypertension, diabetes and CVA who presented to the hospital status post fall onto the left side. Patient had no loss of consciousness and tripped causing her to fall on her left side. Patient complained of left hip pain. Patient was found to have a left femoral neck fracture. Patient underwent ORIF/bipolar cemented arthroplasty of the left hip. Patient tolerated the procedure well. Patient underwent appropriate PT/OT. Case management was consult thing and we are awaiting placement to subacute rehabilitation. Dedicated discharge time 35 minutes. [facility] - Discharge Diagnoses (1) Closed left hip fracture Status: Acute QualifierTitle: Encounter type: initial encounter Fracture healing: F Qualified Code(s): S72.002A - Fracture of unspecified part of neck of left femur , initial encounter for closed fracture (2) Fall Status: Acute QualifierTitle: Encounter type: E (3) HTN (hypertension) Status: Acute QualifierTitle: Hypertension type: essential hypertension Qualified Code( s): I10 - Essential (primary) hypertension (4) S/P hip hemiarthroplasty Status: Acute (5) Diabetes Status: Chronic QualifierTitle: Diabetes mellitus type: type 2 Diabetes mellitus complication status: with hyperglycemia Diabetes mellitus complication detail : D Diabetic retinopathy severity: D Proliferative retinopathy type: P Diabetes mellitus macular edema: D Diabetes mellitus exterminator helper insulin use: without usp use Laterality: L Chronic kidney disease stage: C Qualified Code(s): E11.65 - Type 2 diabetes mellitus with hyperglycemia Core Measure Documentation - Palliative Care Palliative Care/ Comfort Measures: Not Applicable - Core Measures Any of the following diagnoses?: none Exam - Constitutional Vitals: Temp Pulse Resp BP Pulse Ox 98.7 F 114 H 18 136/69 97 12/29/16 21:12 12/29/16 21:12 12/29/16 17:00 12/29/16 21:12 12/29/16 21:12 General appearance: Present: no acute distress, well-nourished - EENT Eyes: Present: PERRL ENT: hearing intact, clear oral mucosa - Neck Neck: Present: supple, normal ROM - Respiratory Respiratory effort: normal Respiratory: bilateral: CTA - Cardiovascular Heart Sounds: Present: S1 & S2. Absent: rub, click - Extremities Extremities: pulses symmetrical, No edema Peripheral Pulses: within normal limits - Abdominal General gastrointestinal: Present: soft, non-tender, non-distended, normal bowel sounds Female genitourinary: Present: normal - Integumentary Integumentary: Present: clear, warm, dry - Musculoskeletal Musculoskeletal: gait normal, strength equal bilaterally - Psychiatric Psychiatric: appropriate mood/affect, intact judgment & insight - Neurologic Neurologic: CNII-XII intact, moves all extremities Plan Activity: advance as tolerated, fall precautions Weight Bearing Status: Weight Bear as Tolerated Diet: diabetic Follow up with: SHELLY GROSSMAN MD [Primary Care Provider] - 7 Days SHIMA OWENS MD [Staff Physician] - 7 Days <MATHIEU TORRE - Last Filed: 12/31/16 11:24> Providers - Providers Date of Admission: 12/23/16 20:48 Attending physician: MATHIEU TORRE 12/24/16 13:00 Physical Therapy Evaluation and Treat [CONS] Routine Comment: avoid flexion, add, int rotation of operative hip Reason For Exam: fracture left hip Mode of Transport?: Wheelchair Weight bearing status?: Full wt bearing Assistive devices?: Yes If so list: Walker 12/25/16 16:35 Consult Acute Rehabilitation [CONS] Routine Consulting Provider: OCTAVIO NAILS Reason For Exam: s/p hip fracture Primary care physician: AUTOMOTIVE PARTS COORDINATOR Hospitalization Reason for admission: hip fx; accidental fall Pertinent studies: Cervical spine CT-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 X-ray of the hip-acute left basicervical hip fracture CT scan of the head-chronic small vessel white matter ischemic change and remote right posterior/occipital infarct. Moderate generalized atrophy. No acute traumatic abnormality Exam - Constitutional Vitals: Temp Pulse Resp BP Pulse Ox 98.6 F 116 H 14 181/91 96 12/31/16 08:00 12/31/16 09:44 12/31/16 08:00 12/31/16 09:44 12/31/16 08:00
[2016-12-30] MEDS: TRADJENTA PO SCH (08:58)
[2016-12-30] MEDS: GLUCOTROL XL PO SCH (08:58)
[2016-12-30] MEDS: K-DUR PO SCH (09:01)
[2016-12-30] MEDS: PEPCID PO SCH (09:01)
[2016-12-30] MEDS: DIOVAN PO SCH (09:01)
[2016-12-30] MEDS: ASPIRIN PO SCH ×2 (09:01→22:00)
[2016-12-30] MEDS: PROCARDIA XL PO SCH (09:01)
--- NOTE | 2016-12-30 12:42 | Event Note ---
Date: 12/30/16 IRU F/U, s/p hip fracture. Pt seen in room this morning. Fever work-up noted to be negative. Pt is not actively participating with PT; not able to complete 3 hours of therapy/day, 5 days/week at her current status. Case discussed with SW; will need 24 hour care at home with family vs. SNF placement. Please call for any further questions. Thank you for consultation.
[2016-12-31] MEDS: NOVOLOG SUB-Q SCH ×3 (00:17→12:13)
[2016-12-31] MEDS: D5/0.45NS 1,000 ML IV SCH (06:18)
[2016-12-31] MEDS: GLUCOTROL XL PO SCH (08:05)
[2016-12-31] MEDS: TRADJENTA PO SCH (08:06)
[2016-12-31] MEDS: ASPIRIN PO SCH (09:42)
[2016-12-31] MEDS: PEPCID PO SCH (09:42)
[2016-12-31] MEDS: PROCARDIA XL PO SCH (09:43)
[2016-12-31] MEDS: DIOVAN PO SCH (09:44)
[2016-12-31] MEDS: K-DUR PO SCH (09:44)
--- NOTE | 2016-12-31 11:30 | Discharge Summary ---
Providers - Providers Date of Admission: 12/23/16 20:48 Date of discharge: 12/31/16 Attending physician: MATHIEU TORRE 12/24/16 13:00 Physical Therapy Evaluation and Treat [CONS] Routine Comment: avoid flexion, add, int rotation of operative hip Reason For Exam: fracture left hip Mode of Transport?: Wheelchair Weight bearing status?: Full wt bearing Assistive devices?: Yes If so list: Walker 12/25/16 16:35 Consult Acute Rehabilitation [CONS] Routine Consulting Provider: OCTAVIO NAILS Reason For Exam: s/p hip fracture Primary care physician: UX DEVELOPER DESIGNER Hospitalization Reason for admission: fracture Lt hip Condition: Stable Pertinent studies: Cervical spine CT-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 X-ray of the hip-acute left basicervical hip fracture CT scan of the head-chronic small vessel white matter ischemic change and remote right posterior/occipital infarct. Moderate generalized atrophy. No acute traumatic abnormality Hospital course: This is an 86-year-old female with past medical history of hypertension, diabetes and CVA who presented to the hospital status post fall onto the left side. Patient had no loss of consciousness and tripped causing her to fall on her left side. Patient complained of left hip pain. Patient was found to have a left femoral neck fracture. Patient underwent ORIF/bipolar cemented arthroplasty of the left hip. Patient tolerated the procedure well. Patient underwent appropriate PT/OT. Case management was consult thing and we are awaiting placement to subacute rehabilitation. Dedicated discharge time 35 minutes. Disposition: DC/TX SNF [facility] Disposition: DC/TX SHORT-TERM GEN HOSP INPT Time spent for discharge: 31 minutes - Discharge Diagnoses (1) Closed left hip fracture Status: Acute Qualifiers: Encounter type: initial encounter Fracture healing: F Qualified Code(s): S72.002A - Fracture of unspecified part of neck of left femur, initial encounter for closed fracture (2) S/P hip hemiarthroplasty Status: Acute (3) Diabetes Status: Chronic Qualifiers: Diabetes mellitus type: type 2 Diabetes mellitus complication status: with hyperglycemia Diabetes mellitus complication detail: D Diabetic retinopathy severity: D Proliferative retinopathy type: P Diabetes mellitus macular edema: D Diabetes mellitus jail insulin use: without termite control service representative use Laterality: L Chronic kidney disease stage: C Qualified Code(s): E11.65 - Type 2 diabetes mellitus with hyperglycemia (4) Severe protein-calorie malnutrition Status: Acute Core Measure Documentation - Palliative Care Palliative Care/ Comfort Measures: Not Applicable - Core Measures Any of the following diagnoses?: none Exam - Constitutional Vitals: Temp Pulse Resp BP Pulse Ox 98.6 F 116 H 14 181/91 96 12/31/16 08:00 12/31/16 09:44 12/31/16 08:00 12/31/16 09:44 12/31/16 08:00 General appearance: Present: no acute distress, cachectic - EENT Eyes: Present: PERRL, EOM intact. Absent: scleral icterus, conjunctival injection ENT: hearing intact, clear oral mucosa, no oropharyngeal erythema, no poor dentition - Neck Neck: Present: supple, normal ROM. Absent: enlarged thyroid, masses or JVD - Respiratory Respiratory effort: normal Respiratory: negative: diminished, rales, rhonchi, wheezing - Cardiovascular Rhythm: regular Heart Sounds: Present: S1 & S2. Absent: gallop - Extremities Extremities: no ischemia, pulses intact, pulses symmetrical Peripheral Pulses: within normal limits - Abdominal General gastrointestinal: Present: soft, non-tender, non-distended, normal bowel sounds Female genitourinary: Present: deferred - Rectal Rectal Exam: deferred - Integumentary Integumentary: Present: clear - Musculoskeletal Musculoskeletal: generalized weakness - Psychiatric Psychiatric: appropriate mood/affect, intact judgment & insight, cooperative - Neurologic Neurologic: CNII-XII intact, moves all extremities Plan Activity: advance as tolerated, fall precautions Weight Bearing Status: Weight Bear as Tolerated Follow up with: SHIMA OWENS MD [Staff Physician] - 7 Days PRIMARY CAREMD [Primary Care Provider] - 7 Days
[2016-12-31 11:44] VITALS: BP 156/80
== END 2016-12-31 12:00 | DRG 469 ==
LOC: ED 14:59 → 2B-SURG 20:48
PROVIDERS: ADMIT Internal Medicine; ATTEND Hospitalist
PROC: 0SRS0J9 Replacement of Left Hip Joint, Femoral Surface with Synthetic Substitute, Cemented, Open Approach (ICD-10-PCS; principal; 2016-12-24)
DX: S72.002A Fracture of unspecified part of neck of left femur, initial encounter for closed fracture (principal); G93.41 Metabolic encephalopathy; E43 Unspecified severe protein-calorie malnutrition; M81.0 Age-related osteoporosis without current pathological fracture; I10 Essential (primary) hypertension; F03.90 Unspecified dementia, unspecified severity, without behavioral disturbance, psychotic disturbance, mood disturbance, and anxiety; K21.9 Gastro-esophageal reflux disease without esophagitis; L25.9 Unspecified contact dermatitis, unspecified cause; R00.0 Tachycardia, unspecified; E11.65 Type 2 diabetes mellitus with hyperglycemia; W19.XXXA Unspecified fall, initial encounter; Y93.89 Activity, other specified; Z68.1 Body mass index [BMI] 19.9 or less, adult; Y92.098 Other place in other non-institutional residence as the place of occurrence of the external cause; I69.954 Hemiplegia and hemiparesis following unspecified cerebrovascular disease affecting left non-dominant side; Y99.8 Other external cause status
CPT/HCPCS: 36415; 70450; 71010; 72125; 80048; 80053; 82140; 82550; 82553; 82962; 84439; 84443; 84484; 85014; 85018; 85025; 85027; 85610; 85730; 87040; 93005; 93010; A4217; C1776; G8978-GP; G8979-GP; J0690; J1170; J1815; J2270; J2370; J2405; J2704; J3010; J7030